=== PATIENT | female | born 1995 | race Hispanic/Latino ===

== ENCOUNTER 2018-09-18 18:43 | Emergency (ER) | payer OTHER, SELFPAY ==
[2018-09-18] MEDS ORDERED: TETANUS & DIPHTHERIA TOX,ADULT 0.5 ML VIAL ONE (20:44)
--- NOTE | 2018-09-18 22:06 | EDPHYS ---
Physician Documentation [facility] Name: Anamika Norton Age: 22 yrs Sex: Female : 1995 Arrival Date: 09/18/2018 Time: 18:46 Bed Treatment Private MD: ED Physician Adam Navarro HPI: 09/18 22:00 This 22 yrs old Female presents to ER via Ambulatory with complaints of pm1 Numbness Of Hand. 22:00 The patient or guardian reports pain. The complaints affect the dorsal aspect of distal pm1 phalanx of right thumb. Context: The problem was sustained at home, resulted from nail biting. Onset: The symptoms/episode began/occurred 3 day(s) ago. Modifying factors: The symptoms are alleviated by nothing, the symptoms are aggravated by nothing. Associated signs and symptoms: Pertinent negatives: cyanosis distally, decreased sensation distally, fever, numbness distally, tingling distally. Severity of symptoms: in the emergency department the symptoms are actually worse. The patient has not experienced similar symptoms in the past. The patient has not recently seen a physician. 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 - Social history:: Smoking status: Patient/guardian denies using tobacco. - Ebola Screening: : No symptoms or risks identified at this time. ROS: 22:00 Constitutional: Negative for fever, chills, and weight loss, Eyes: Negative for injury, pm1 pain, redness, and discharge, ENT: Negative for injury, pain, and discharge, Neck: Negative for injury, pain, and swelling, Cardiovascular: Negative for chest pain, palpitations, and edema, Respiratory: Negative for shortness of breath, cough, wheezing, and pleuritic chest pain, Abdomen/GI: Negative for abdominal pain, nausea, vomiting, diarrhea, and constipation, Back: Negative for injury and pain. 22:00 Skin: Negative for injury, rash, and discoloration, Neuro: Negative for headache, weakness, numbness, tingling, and seizure. 22:00 MS/extremity: Positive for pain, swelling, of the dorsal aspect of distal phalanx of right thumb, Negative for decreased range of motion, deformity. Exam: 22:00 Constitutional: This is a well developed, well nourished patient who is awake, alert, pm1 and in no acute distress. Head/Face: Normocephalic, atraumatic. Neck: Trachea midline, no thyromegaly or masses palpated, and no cervical lymphadenopathy. Supple, full range of motion without nuchal rigidity, or vertebral point tenderness. No Meningismus. Chest/axilla: Normal chest wall appearance and motion. Nontender with no deformity. No lesions are appreciated. Cardiovascular: Regular rate and rhythm with a normal S1 and S2. No gallops, murmurs, or rubs. Normal PMI, no JVD. No pulse deficits. Respiratory: Lungs have equal breath sounds bilaterally, clear to auscultation and percussion. No rales, rhonchi or wheezes noted. No increased work of breathing, no retractions or nasal flaring. Abdomen/GI: Soft, non-tender, with normal bowel sounds. No distension or tympany. No guarding or rebound. No evidence of tenderness throughout. Back: No spinal tenderness. No costovertebral tenderness. Full range of motion. Skin: Warm, dry with normal turgor. Normal color with no rashes, no lesions, and no evidence of cellulitis. 22:00 Musculoskeletal/extremity: Extremities: grossly normal except: noted in the dorsal aspect of distal phalanx of right thumb: fluctuance and swelling present to medial lateral aspect of right thumb cuticle. Vital Signs: 19:06 BP 104 / 58; Pulse 91; Resp 18; Temp 98(TE); Pulse Ox 100% ; Weight 143.34 kg; Height 5 ea ft. 2 in. (157.48 cm); Pain 10/10; 19:06 Body Mass Index 57.80 (143.34 kg, 157.48 cm) ea MDM: 20:02 Patient medically screened. pm1 22:03 Data reviewed: vital signs. Data interpreted: Pulse oximetry: on room air is 100 %. pm1 Interpretation: normal. Counseling: I had a detailed discussion with the patient and/or guardian regarding: the historical points, exam findings, and any diagnostic results supporting the discharge/admit diagnosis, the need for outpatient follow up, to return to the emergency department if symptoms worsen or persist or if there are any questions or concerns that arise at home. 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 Exp: iw 09/11/2020. Lot #: [id number]. } Route: IM; Site: left deltoid; 22:00 Follow up: Response: No adverse reaction; No change in condition 21:55 Drug: [place] (7.5 mg-325 mg) 1 tabs Route: PO; fc 22:00 Follow up: Response: No adverse reaction; Pain is decreased fc Disposition: 09/19 20:11 Co-signature as Attending Physician, Adam Navarro MD. Disposition: 09/18/18 22:06 Discharged to Home. Impression: Paronychia right thumb. - Condition is Stable. - Discharge Instructions: Paronychia. - Prescriptions for Augmentin 875- 125 mg Oral Tablet - take 1 tablet by ORAL route every 12 hours for 10 days; 20 tablet. Tylenol- Codeine #3 300-30 mg Oral Tablet - take 2 tablets by ORAL route every 6 hours As needed; 20 tablet. - Medication Reconciliation Form, Thank You Letter, Antibiotic Education, Prescription Opioid Use form. - Follow up: Emergency Department; When: As needed; Reason: Worsening of condition. Follow up: Julian Hdz MD; When: 2 - 3 days; Reason: Recheck today's complaints, Continuance of care, Re-evaluation by your physician. - Problem is new. - Symptoms have improved. Signatures: Cris Blackman RN RN Radha Hernández RN RN Wilbert Villavicencio, MANAGER FREELANCE MANAGER FREELANCE pm1 Carole Terrazas RN RN ea Starr, Gregory, MD MD Corrections: (The following items were deleted from the chart) 09/18 22:20 22:06 09/18/2018 22:06 Discharged to Home. Impression: Paronychia right thumb. Condition is Stable. Forms are Medication Reconciliation Form, Thank You Letter, Antibiotic Education, Prescription Opioid Use. Follow up: Emergency Department; When: As needed; Reason: Worsening of condition. Follow up: Julian Hdz; When: 2 - 3 days; Reason: Recheck today's complaints, Continuance of care, Re-evaluation by your physician. Problem is new. Symptoms have improved. pm1
--- NOTE | 2018-09-18 22:06 | ER ---
Nurse's Notes [facility] Name: Anamika Norton Age: 22 yrs Sex: Female : 1995 Arrival Date: 09/18/2018 Time: 18:46 Bed Treatment Private MD: Diagnosis: Paronychia right thumb Presentation: 09/18 19:04 Presenting complaint: Patient states: Pt complaining of pain and numbness to right ea thumb with pain that radiates to right arm. Transition of care: patient was not received from another setting of care. Onset of symptoms. Risk Assessment: Do you want to hurt yourself or someone else? Patient reports no desire to harm self or others. Initial Sepsis Screen: Does the patient meet any 2 criteria? No. Patient's initial sepsis screen is negative. Does the patient have a suspected source of infection? No. Patient's initial sepsis screen is negative. Care prior to arrival: None. 19:04 Method Of Arrival: Ambulatory ea 19:04 Acuity: FLOR 5 ea Triage Assessment: 19:08 General: Appears uncomfortable, Behavior is calm, cooperative, appropriate for age. ea Pain: Complains of pain in right thumbnail. Neuro: Level of Consciousness is awake, alert, obeys commands, Oriented to person, place, time. Cardiovascular: Patient's skin is warm and dry. Respiratory: Airway is patent Respiratory effort is even, unlabored, Respiratory pattern is regular, symmetrical. Musculoskeletal: Circulation, motion, and sensation intact. 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 - Social history:: Smoking status: Patient/guardian denies using tobacco. - Ebola Screening: : No symptoms or risks identified at this time. Screenin:06 Abuse screen: Denies threats or abuse. Denies injuries from another. Nutritional iw screening: No deficits noted. Tuberculosis screening: No symptoms or risk factors identified. Fall Risk None identified. Assessment: 20:05 General: Appears in no apparent distress. Behavior is calm, cooperative. Neuro: Level iw of Consciousness is awake, alert, obeys commands, Oriented to person, place, time, Moves all extremities. Cardiovascular: Patient's skin is warm and dry. Respiratory: Respiratory effort is even, unlabored, Respiratory pattern is regular, symmetrical. Derm: Skin is intact, is healthy with good turgor. Musculoskeletal: Range of motion: intact in all extremities, Reports numbness in right hand. 20:05 Pain: Complains of pain in right thumbnail. Derm: swelling noted to right thumb. iw 21:15 Reassessment: No changes from previously documented assessment. Patient and/or family fc updated on plan of care and expected duration. Pain level reassessed. Patient is alert, oriented x 3, equal unlabored respirations, skin warm/dry/pink. Wilbert RED CROSS EXECUTIVE DIRECTOR in to drain pts thumb. 21:45 Reassessment: No changes from previously documented assessment. Patient and/or family fc updated on plan of care and expected duration. Pain level reassessed. Patient is alert, oriented x 3, equal unlabored respirations, skin warm/dry/pink. Pt pending discharge. Vital Signs: 19:06 BP 104 / 58; Pulse 91; Resp 18; Temp 98(TE); Pulse Ox 100% ; Weight 143.34 kg; Height 5 ea ft. 2 in. (157.48 cm); Pain 10/10; 19:06 Body Mass Index 57.80 (143.34 kg, 157.48 cm) ea ED Course: 18:46 Patient arrived in ED. rg4 19:06 Triage completed. ea 19:08 Arm band placed on left wrist. Patient placed in waiting room. ea 19:29 Radha Hernández, JOVANI is Primary Nurse. iw 20:01 Wilbert Villavicencio NP is PHCP. pm1 20:01 Adam Navarro MD is Attending Physician. pm1 21:00 Patient has correct armband on for positive identification. Call light in reach. fc 21:30 Wound care: to cellulitis located on dorsal aspect of distal phalanx of right thumb was fc debrided using dressed with Neosporin, 4X4s, Patient tolerated well. 22:05 Julian Hdz MD is Referral Physician. pm1 09/19 00:45 No provider procedures requiring assistance completed. Patient did not have IV access fc during this emergency room visit. 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 Exp: iw 09/11/2020. Lot #: [id number]. } Route: IM; Site: left deltoid; 22:00 Follow up: Response: No adverse reaction; No change in condition 21:55 Drug: [place] (7.5 mg-325 mg) 1 tabs Route: PO; 22:00 Follow up: Response: No adverse reaction; Pain is decreased fc Outcome: 22:00 Discharged to home ambulatory, with family. 22:00 Condition: good 22:00 Discharge instructions given to patient, family, Instructed on discharge instructions, follow up and referral plans. no drinking with medication, no driving heavy equipment, medication usage, wound care, Demonstrated understanding of instructions, follow-up care, medications, wound care, Prescriptions given X 2. 22:06 Discharge ordered by . pm1 22:20 Patient left the ED. Signatures: Cris Blackman RN RN Radha Hernández RN RN Wilbert Villavicencio, DOROTEO RED CROSS EXECUTIVE DIRECTOR pm1 Brisa Cortez rg4 Carole Terrazas RN RN ea
[2018-09-18 22:25] VITALS: BP 104/58; TEMP 98; O2SAT 100
== END 2018-09-18 22:20 | disposition home or self-care (01) ==
LOC: ER 18:43
DX: L03.011 Cellulitis of right finger (principal); E11.9 Type 2 diabetes mellitus without complications; Z23 Encounter for immunization; Z88.0 Allergy status to penicillin
CPT/HCPCS: 90714; 99283

== ENCOUNTER 2022-08-30 06:55 | Emergency (ER) | payer SELFPAY ==
--- OUTSIDE RECORDS SUMMARY | 2022-08-30 06:58 | XMS REPORT | Continuity of Care Document ---
:1995 Author Organization [facility] t Address [address] [place] [address] Care Team Providers Name Role Phone PCP, PATIENT DOES NOT HAVE A Primary Care Physician Unavaila Juanpablo Causey DO Attending Clinician JUANPABLO BANEGAS Attending Clinician Unavailable JUANPABLO BANEGAS Admitting Clinician Unavailable Payers Payer Name Policy Type Policy Number Effective Date Expiration Date S edie HAYNESR FROM [id number] 2021 [facility] 00:00:00 Problems Condition Condition Condition Status Onset Resolution Last Treating Co mments Source Name Details Category Date Date Treatment Clinician Date No known No known Disease Unive rs active active ity of problems problems [facility] Allergies, Adverse Reactions, Alerts Allergy Allergy Status Severity Reaction(s) Onset Inactive Treating Comm ents Source Name Type Date Date Clinician Penicill Propensi Active Unknown - 2020-07 Uni vers ins ty to See comments 0-07 ity of adverse 00:00: [place] reaction 00 Medical s Branch PENICILL Drug Active Unknown-Cmnt 2020-07 Un charbel INS Class 0-07 ity of 00:00: [place] 00 Medical Branch Social History Social Habit Start Date Stop Date Quantity Comments Source Exposure to Not sure [facility] SARS-CoV-2 (event) Medica l Branch Sex Assigned At [birth year] [facility] 00:00:00 00:00:00 Medical Branch Smoking Status Start Date Stop Date Source Unknown if ever smoked [facility] Medications Ordered Filled Start Stop Current Ordering Indication Dosage Frequency Signature Comments Components Source Medication Medication Date Date Medication? Clinician (SIG) Name Name metFORMIN 2020-07 Yes [id number] 500mg Take 1 [facility] 500 mg 0-07 tablet by ity of tablet 00:00: mouth 2 [place] 00 (two) Medical times Branch daily. naproxen 2020-07 Yes [id number] 550mg Take 1 U nivers sodium 0-07 tablet by ity of (ANAPROX 00:00: mouth 2 [place] DS) 550 mg 00 (two) Medical tablet times Branch daily with meals. methocarbam 2020-07 No [id number] 500mg Take 1 Univers oL 500 mg 0-07 - tablet by ity of tablet 00:00: 04:59 mouth 3 [place] 00 :00 (three) Medical times Branch daily for 5 days. Vital Signs Vital Name Observation Time Observation Value Comments Source Systolic blood 2021-05-04 12:54:00 134 [facility]Hg[facility] 2021-05-04 12:54:00 84 mm[facility]Hg[facility] 2021-05-04 12:54:00 79 /min [facility] Body temperature 2021-05-04 12:54:00 36.78 [facility] Respiratory rate 2021-05-04 12:54:00 18 /min [facility] Body weight 2021-05-04 12:54:00 134.265 kg [facility] Oxygen saturation in 2021-05-04 12:54:00 99 /min [facility] Arterial blood by [facility] Pulse oximetry Branch Procedures Procedure Date / Time Performed Performing Clinician John e XR HIPS 3 VW LEFT 2021-05-04 13:26:57 Juanpablo Banegas [facility] Encounters Start End Encounter Admission Attending Care Care Encounter Source Date/Time Date/Time Type Type Clinicians Facility Department ID 2021-05-04 2021-05-04 Emergency BLACK Banegas [id number] [facility] 07:58:00 08:51:00 Juanpablo Muse [id number] i ty [facility] [id number] [facility] [id number] [facility] 084 Branch 2021-05-04 2021-05-04 Emergency X [facility] ERT [id number] 07:58:00 08:51:00 JUANPABLO garces [facility] Results This patient has no known results.
--- NOTE | 2022-08-30 08:04 | RAD REPORT ---
EXAM DESCRIPTION: RAD - Chest Pa And Lat (2 Views) - 08/30/2022 7:40 am CLINICAL HISTORY: COUGH COMPARISON: Portable 05/07/2022, lateral chest 03/12/2017 TECHNIQUE: Frontal and lateral views of the chest were obtained. FINDINGS: The lungs are clear. Interstitial pattern matches comparison. No hilar mass or abnormal l ymphadenopathy seen. Heart size is normal and central vasculature is within normal limits. No pleural effusion or pneumo thorax seen. No acute bony finding noted. No aortic abnormality. IMPRESSION: No acute cardiopulmonary process. No significant change from comparison study.
[2022-08-30 08:14] LABS: SARS-COV-2 RT PCR NEGATIVE (NEGATIVE)
[2022-08-30] MEDS ORDERED: ACETAMINOPHEN 500 MG TAB ONE (08:22)
--- NOTE | 2022-08-30 08:25 | EDPHYS ---
Physician Documentation [facility] Name: Anamika Norton Age: 26 yrs Sex: Female : 1995 Arrival Date: 08/30/2022 Time: 06:58 Bed 5 Private MD: ED Physician Faisal Renee HPI: 08/30 08:25 This 26 yrs old Female presents to ER via Ambulatory with complaints of Sinus ms3 Pain, Breathing Difficulty. 08:25 26-year-old female with past medical history of diabetes presents for sinus, chest ms3 pain, headache that she rates a 5/10 and described as aching. Patient denies nausea, vomiting, chills, fever. Patient states her symptoms began on Saturday. Patient denies alleviating or inciting factors.. 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 - Social history:: Smoking status: Patient reports the use of cigarette tobacco products, denies chronic smoking, but will smoke occasionally, Patient uses alcohol, occasionally. ROS: 08:27 Cardiovascular: Negative for chest pain, and palpitations. Respiratory: Negative for ms3 shortness of breath, cough, wheezing, and pleuritic chest pain, Abdomen/GI: Negative for abdominal pain, nausea, vomiting, diarrhea, and constipation, MS/Extremity: Negative for injury and deformity, Skin: Negative for injury, rash, and discoloration. 08:27 Constitutional: Positive for body aches, Negative for chills, fever. 08:27 All other systems are negative. Exam: 08:27 Constitutional: This is a well developed, well nourished patient who is awake, alert, ms3 and in no acute distress. Neck: Trachea midline, no cervical lymphadenopathy. Supple, full range of motion without nuchal rigidity, or vertebral point tenderness. No Meningismus. Chest/axilla: Normal chest wall appearance and motion. Nontender with no deformity. Cardiovascular: Regular rate and rhythm with a normal S1 and S2. No gallops, murmurs, or rubs. Normal PMI, no JVD. No pulse deficits. Respiratory: Lungs have equal breath sounds bilaterally, clear to auscultation and percussion. No rales, rhonchi or wheezes noted. No increased work of breathing, no retractions or nasal flaring. Abdomen/GI: Soft, non-tender, with normal bowel sounds. No distension or tympany. No guarding or rebound. No evidence of tenderness throughout. Skin: Warm, dry with normal turgor. Normal color with no rashes, no lesions, and no evidence of cellulitis. MS/ Extremity: Pulses equal, no cyanosis. Neurovascular intact. Full, normal range of motion. Vital Signs: 07:14 BP 125 / 85; Pulse 80; Resp 17; Temp 98.1(O); Pulse Ox 98% on R/A; Weight 117.03 kg; ap3 Height 5 ft. 2 in. (157.48 cm); 07:14 Body Mass Index 47.19 (117.03 kg, 157.48 cm) ap3 MDM: 07:20 Patient medically screened. ms3 08:27 Differential Diagnosis: Bronchitis Influenza Upper Respiratory Infection Viral Syndrome ms3 Pneumonia. Data reviewed: vital signs, nurses notes, lab test result(s), Flu/COVID, radiologic studies, plain films, and as a result, I will discharge patient. I considered the following discharge prescriptions or medication management in the emergency department I discussed and recommended Over The Counter medications, Medications were administered in the Emergency Department. See MAR. Independent interpretation of the following test(s) in the Emergency Department X-Ray: My interpretation is My interpretation of chest x-ray image: Negative acute. Counseling: I had a detailed discussion with the patient and/or guardian regarding: the historical points, exam findings, and any diagnostic results supporting the discharge/admit diagnosis, lab results, radiology results, the need for outpatient follow up, to return to the emergency department if symptoms worsen or persist or if there are any questions or concerns that arise at home. ED course: Discussed negative flu, COVID, chest x-ray with patient. Patient to follow-up with Dr. Vanegas in 2 to 3 days. Patient understands and agrees with plan. All questions were answered. Return precautions discussed include shortness of breath, chest pain, worsening symptoms, or any other concerns. On reevaluation patient is alert and oriented x4, in no apparent distress, nontoxic, ambulatory in emergency department, speaking full sentences.. 08/30 07:23 Order name: COVID-19/FLU A+B; Complete Time: 08:16 ms3 08/30 07:23 Order name: Chest Pa And Lat (2 Views) XRAY; Complete Time: 08:16 ms3 Administered Medications: 08:20 Drug: Tylenol 1000 mg Route: PO; ph 08:20 Follow up: Response: No adverse reaction ph Disposition Summary: 08/30/22 08:24 Discharge Ordered Location: Home ms3 Condition: Stable ms3 Diagnosis - Acute upper respiratory infection, unspecified ms3 - Nasal congestion ms3 - Myalgia ms3 Followup: ms3 - With: Bob Vanegas DO - When: 2 - 3 days - Reason: Recheck today's complaints Discharge Instructions: - Discharge Summary Sheet ph - Viral Respiratory Infection ms3 Forms: - Work release form ph - Medication Reconciliation Form ms3 - Thank You Letter ms3 - Antibiotic Education ms3 - Prescription Opioid Use ms3 Prescriptions: - Nasacort 55 mcg Nasal aerosol,spray - spray 2 spray by INTRANASAL route once daily; 1 bottle; Refills: 0, Product ms3 Selection Permitted - Claritin 10 mg Oral Tablet - take 1 tablet by ORAL route once daily As needed; 30 tablet; Refills: 0, ms3 Product Selection Permitted Signatures: Dispatcher [employer] Ashlee Mayen RN RN Lesli Galaviz RN RN ap3 Faisal Renee DO DO ms3 Corrections: (The following items were deleted from the chart) 08:28 08:25 26-year-old female with past medical history of diabetes presents for sinus, ms3 chest pain, headache that she rates a 5/10 and described as aching. Patient denies nausea, vomiting, chills, fever. Patient states her symptoms began. ms3
--- NOTE | 2022-08-30 08:25 | ER ---
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 Patient reports her cough is productive. Coronavirus screen: Client presents with at least one sign or symptom that may indicate coronavirus-19. Ebola Screen: No symptoms or risks identified at this time. Initial Sepsis Screen: Does the patient meet any 2 criteria? No. Patient's initial sepsis screen is negative. Does the patient have a suspected source of infection? Yes: Productive cough/pneumonia. Risk Assessment: Do you want to hurt yourself or someone else? Patient reports no desire to harm self or others. Onset of symptoms was August 27, 2022. 07:14 Method Of Arrival: Ambulatory ap3 07:14 Acuity: FLOR 4 ap3 Triage Assessment: 07:17 Headache History: The patient has had previous headaches and this one is similar to ap3 previous episodes. General: Appears in no apparent distress. Behavior is calm, cooperative. Pain: Complains of pain in head, and face Pain currently is 5 out of 10 on a pain scale. Pain began gradually, 2-3 days ago. Also complains of cough, congestion, sneezing. EENT: Reports nasal congestion nasal discharge. Neuro: Level of Consciousness is awake, alert, obeys commands, Oriented to person, place, time, situation, Gait is steady, Speech is normal, Facial symmetry appears normal. Cardiovascular: Patient's skin is warm and dry. Respiratory: Reports cough that is productive, Airway is patent Respiratory pattern is regular, symmetrical. 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 - Social history:: Smoking status: Patient reports the use of cigarette tobacco products, denies chronic smoking, but will smoke occasionally, Patient uses alcohol, occasionally. Screenin:18 [facility] ED Fall Risk Assessment (Adult) History of falling in the last 3 months, ap3 including since admission No falls in past 3 months (0 pts). Abuse screen: Denies threats or abuse. Nutritional screening: No deficits noted. Tuberculosis screening: No symptoms or risk factors identified. Vital Signs: 07:14 BP 125 / 85; Pulse 80; Resp 17; Temp 98.1(O); Pulse Ox 98% on R/A; Weight 117.03 kg; ap3 Height 5 ft. 2 in. (157.48 cm); 07:14 Body Mass Index 47.19 (117.03 kg, 157.48 cm) ap3 ED Course: 06:58 Patient arrived in ED. rg4 07:04 Faisal Renee DO is Attending Physician. ms3 07:05 Lesli Hankins RN is Primary Nurse. ap3 07:16 Triage completed. ap3 07:18 Arm band placed on left wrist. ap3 07:18 Patient has correct armband on for positive identification. Bed in low position. Call ap3 light in reach. Side rails up X 1. Pulse ox on. NIBP on. Door closed. Noise minimized. 07:35 COVID-19/FLU A+B Sent. kc6 07:42 Chest Pa And Lat (2 Views) XRAY In Process Unspecified. EDMS 08:23 Bob Vanegas DO is Referral Physician. ms3 08:32 No provider procedures requiring assistance completed. Patient did not have IV access ap3 during this emergency room visit. Administered Medications: 08:20 Drug: Tylenol 1000 mg Route: PO; ph 08:20 Follow up: Response: No adverse reaction ph Medication: 07:19 VIS not applicable for this client. ap3 Outcome: 08:24 Discharge ordered by MD. ms3 08:32 Discharged to home ambulatory. ap3 08:32 Condition: good 08:32 Discharge instructions given to patient, Instructed on discharge instructions, follow up and referral plans. medication usage, Demonstrated understanding of instructions, follow-up care, medications, Prescriptions given X 2. 08:32 Patient left the ED. ap3 Signatures: Dispatcher [employer] EDNE Ashlee Jean Baptiste RN RN ph Brisa Cortez rg4 Lesli Hankins, RN RN ap3 Faisal Renee, DO LADD ms3 Rajni Chilel, RN RN kc6
[2022-08-30 08:45] VITALS: BP 125/85; TEMP 98.1; O2SAT 98
== END 2022-08-30 08:32 | disposition home or self-care (01) ==
LOC: ER 06:55
DX: J06.9 Acute upper respiratory infection, unspecified (principal); M79.10 Myalgia, unspecified site; E11.9 Type 2 diabetes mellitus without complications; F17.210 Nicotine dependence, cigarettes, uncomplicated; Z20.822 Contact with and (suspected) exposure to COVID-19
CPT/HCPCS: 0240U; 71046; 99284

== ENCOUNTER 2022-12-11 19:12 | Emergency (ER) | payer SELFPAY ==
--- OUTSIDE RECORDS SUMMARY | 2022-12-11 19:15 | XMS REPORT | Continuity of Care Document ---
:1995 Author Organization [facility] t Address [address] [facility] [address] [place] [id number] Care Team Providers Name Role Phone PCP, PATIENT DOES NOT HAVE A Primary Care Physician Unavaila Juanpablo Causey DO Attending Clinician JUANPABLO BANEGAS Attending Clinician Unavailable JUANPABLO BANEGAS Admitting Clinician Unavailable Payers Payer Name Policy Type Policy Number Effective Date Expiration Date S edie HAYNESR FROM [id number] 2021 [facility] 00:00:00 Problems Condition Condition Condition Status Onset Resolution Last Treating Co mments Source Name Details Category Date Date Treatment Clinician Date No known No known Disease Unive rs active active ity of problems problems [facility] Allergies, Adverse Reactions, Alerts Allergy Allergy Status [...] Quantity Comments Source Exposure to Not sure [facility] SARS-CoV-2 (event) Medica l Branch Sex Assigned At [birth year] [facility] 00:00:00 00:00:00 Medical Branch Smoking Status Start Date Stop Date Source Unknown if ever smoked [facility] Medications Ordered Filled Start Stop Current Ordering Indication Dosage Frequency Signature Comments Components Source Medication Medication Date Date Medication? Clinician (SIG) Name Name metFORMIN 2020-07 Yes [id number] 500mg Take 1 [facility] 500 mg 0-07 tablet by ity of tablet 00:00: mouth 2 [place] 00 (two) Medical times Branch daily. naproxen 2020-07 Yes [id number] 550mg Take 1 U nivers sodium 0-07 tablet by ity of (ANAPROX 00:00: mouth 2 [place] DS) 550 mg 00 (two) Medical tablet times Branch daily with meals. methocarbam 2020-07 No [id number] 500mg Take 1 [facility] oL 500 mg 0-07 - tablet by ity of tablet 00:00: 04:59 mouth 3 [place] 00 :00 (three) Medical times Branch daily for 5 days. Vital Signs Vital Name Observation Time Observation Value Comments Source Systolic blood 2021-05-04 12:54:00 134 mm[Hg] [facility] 2021-05-04 12:54:00 84 mm[facility]Hg[facility] 2021-05-04 12:54:00 79 /min [facility] Body temperature 2021-05-04 12:54:00 36.78 Priscilla [facility] Respiratory rate 2021-05-04 12:54:00 18 /min [facility] Body weight 2021-05-04 12:54:00 134.265 kg [facility] Oxygen saturation in 2021-05-04 12:54:00 99 /min [facility] Arterial blood by [facility] Pulse oximetry Branch Procedures Procedure Date / Time Performed Performing Clinician John e XR HIPS 3 VW LEFT 2021-05-04 13:26:57 Juanpablo Banegas [facility] Encounters Start End Encounter Admission Attending Care Care Encounter Source Date/Time Date/Time Type Type Clinicians Facility Department ID 2021-05-04 2021-05-04 Emergency BLACK Banegas [id number] [facility] 07:58:00 08:51:00 Juanpablo Muse [id number] i ty [facility] [id number] [facility] [id number] [facility] 084 Branch 2021-05-04 2021-05-04 Emergency X [facility] ERT [id number] 07:58:00 08:51:00 JUANPABLO garces [facility] Results This patient has no known results.
--- NOTE | 2022-12-11 20:23 | RAD REPORT ---
EXAM DESCRIPTION: US - Extremity Nonvascular Limited - 12/11/2022 8:10 pm CLINICAL HISTORY: SWELLING COMPARISON: No comparisons TECHNIQUE: Real-time sonographic evaluation of the area of interest was performed posterior right ne ck. FINDINGS: Subcutaneous cystic lesion is present measuring 2.6 x 1.9 x 1.0 cm. Maximum depth of 1 cm noted. This appears in close approximation to the skin and may be dermatologic in etiology. Consider surgical excision.
[2022-12-11] MEDS ORDERED: IBUPROFEN 400 MG TAB ONE (20:30)
--- NOTE | 2022-12-11 20:38 | ER ---
Nurse's Notes [facility] Name: Anamika Norton Age: 27 yrs Sex: Female : 1995 Arrival Date: 12/11/2022 Time: 19:12 Bed 9 Private MD: Diagnosis: Localized swelling, mass and lump, neck Presentation: 12/11 19:30 Chief complaint: Patient states: Lumb of the back of the neck, noted first about 2 nj1 years ago, was "tiny" however, about two weeks ago had grown in size, squeezed some pus but wasn't hurting as bad until this weekend and has grown in size. Coronavirus screen: Vaccine status: Patient reports receiving the 2nd dose of the covid vaccine. Ebola Screen: Patient denies travel to an Ebola-affected area in the 21 days before illness onset. Initial Sepsis Screen: Does the patient meet any 2 criteria? No. Patient's initial sepsis screen is negative. Does the patient have a suspected source of infection? No. Patient's initial sepsis screen is negative. Risk Assessment: Do you want to hurt yourself or someone else? Patient reports no desire to harm self or others. Onset of symptoms was November 27, 2022. 19:30 Method Of Arrival: Ambulatory [facility] 19:30 Acuity: FLOR 3 nj1 Triage Assessment: 20:25 General: Appears in no apparent distress. comfortable, well groomed, well developed, pf1 Behavior is calm, cooperative, appropriate for age, quiet. Pain: Complains of pain in right lower neck Pain currently is 4 out of 10 on a pain scale. Pain began 2 weeks. 20:25 EENT: No deficits noted. No signs and/or symptoms were reported regarding the EENT pf1 system. Neuro: No deficits noted. Level of Consciousness is awake, alert, obeys commands, Oriented to person, place, time, situation. Cardiovascular: No deficits noted. Capillary refill < 3 seconds Patient's skin is warm and dry. Respiratory: No deficits noted. Airway is patent Trachea midline Respiratory effort is even, unlabored, Respiratory pattern is regular, symmetrical. GI: No deficits noted. No signs and/or symptoms were reported involving the gastrointestinal system. : No deficits noted. No signs and/or symptoms were reported regarding the genitourinary system. Derm: mild red bump to right lower posterior neck. Musculoskeletal: No deficits noted. No signs and/or symptoms reported regarding the musculoskeletal system. Historical: - Allergies: 19:36 PENICILLINS; nj1 - PMHx: 19:36 Diabetes - NIDDM; nj1 - PSHx: 19:36 section; nj1 - Immunization history:: Client reports receiving the 2nd dose of the Covid vaccine. - Social history:: Smoking status: Patient reports the use of cigarette tobacco products, denies chronic smoking, but will smoke occasionally. Screenin:25 [facility] ED Fall Risk Assessment (Adult) History of falling in the last 3 months, pf1 including since admission No falls in past 3 months (0 pts) Confusion or Disorientation No (0 pts) Intoxicated or Sedated No (0 pts) Impaired Gait No (0 pts) Mobility Assist Device Used No (0 pt) Altered Elimination No (0 pt) Score/Fall Risk Level 0 - 2 = Low Risk Oriented to surroundings, Maintained a safe environment, Educated pt \\T\\ family on fall prevention, incl call for assistance when getting out of bed, Assessed \\T\\ reinforced patient's understanding of fall precautions, Provided non-skid footwear, Hourly rounding (assess needs \\T\\ fall precautionary measures) done, Used ambulatory aids as needed (educated on \\T\\ assisted with), Used gait belt as appropriate. 20:25 Abuse screen: Denies threats or abuse. Nutritional screening: No deficits noted. pf1 Tuberculosis screening: No symptoms or risk factors identified. Assessment: 20:25 General: Appears in no apparent distress. comfortable, obese, well groomed, well pf1 developed, Behavior is calm, cooperative, appropriate for age, quiet. 20:25 Pain: Complains of pain in bump to right upper back proximal to neck region,onset 2 pf1 years ago, worse in the past 2 weeks after trying to drain some pus from the bump and now having some mild redness to bump. Vital Signs: 19:30 BP 132 / 108; Pulse 89; Resp 16; Temp 98.8; Pulse Ox 100% ; Weight 128.82 kg; Height 5 nj1 ft. 2 in. ; Pain 6/10; 20:48 BP 116 / 67; Pulse 85; Resp 16; Temp 98.2; Pulse Ox 99% on R/A; Pain 3/10; pf1 19:30 Body Mass Index 51.94 (128.82 kg, 157.48 cm) nj1 19:30 Pain Scale: Adult nj1 20:48 Pain Scale: Adult pf1 ED Course: 19:13 Patient arrived in ED. ja2 19:14 Parrish Vaca PA is PHCP. cp 19:14 Faisal Renee DO is Attending Physician. cp 19:36 Triage completed. nj1 19:38 Arm band placed on right wrist. nj1 20:12 US Extrmty Nonvasular Limited: right side of neck In Process Unspecified. EDMS 20:25 Patient has correct armband on for positive identification. Bed in low position. Call pf1 light in reach. 20:36 Keven Lora MD is Referral Physician. cp 20:40 No provider procedures requiring assistance completed. pf1 20:40 Patient did not have IV access during this emergency room visit. pf1 Administered Medications: 20:32 Drug: Ibuprofen PO 800 mg Route: PO; mb9 20:48 Follow up: Response: No adverse reaction; Marked relief of symptoms pf1 Medication: 20:48 VIS not applicable for this client. pf1 Outcome: 20:37 Discharge ordered by MD. cp 20:48 Discharged to home ambulatory. pf1 20:48 Condition: good 20:48 Discharge instructions given to patient, Instructed on discharge instructions, follow up and referral plans. Demonstrated understanding of instructions, follow-up care, medications, Prescriptions given X 2. 20:48 Patient left the ED. pf1 Signatures: Dispatcher [employer] EDSC Parrish Vaca PA PA cp Lynette Murray ja2 Lakshmi Mascorro RN RN mb9 Kaylie Mary RN RN pf1 Perla Portillo RN RN nj1 Corrections: (The following items were deleted from the chart) 19:38 19:36 Allergies: No Known Allergies; nj1 nj1 12/12 02:37 16 08:25 General: Appears in no apparent distress. comfortable, obese, well groomed, pf1 well developed, Behavior is calm, cooperative, appropriate for age, quiet, pf1 12/12 02:37 16 08:25 Pain: Complains of pain in bump to right upper back proximal to neck pf1 region,onset 2 years ago, worse in the past 2 weeks after trying to drain some pus from the bump and now having some mild redness to bump. pf1
--- NOTE | 2022-12-11 20:38 | EDPHYS ---
Physician Documentation [facility] Name: Anamika Norton Age: 27 yrs Sex: Female : 1995 Arrival Date: 12/11/2022 Time: 19:12 Bed 9 Private MD: ED Physician Faisal Renee HPI: 12/11 19:45 This 27 yrs old Female presents to ER via Ambulatory with complaints of Lump cp on Neck. 19:45 The patient or guardian complains of swelling, tenderness. cp 19:45 The symptoms are located on the right lateral side of neck. Onset: The symptoms/episode cp began/occurred 2 year(s) ago. Context: The neck injury/problem resulted from from unknown cause. Associated signs and symptoms: Pertinent negatives: chills, fever, nausea, vomiting. The pain does not radiate. 19:45 Patient reports increased swelling and pain to area of right side of neck for past 2 cp weeks. Reports expressing "pus" from area. Historical: - Allergies: 19:36 PENICILLINS; nj1 - PMHx: 19:36 Diabetes - NIDDM; nj1 - PSHx: 19:36 section; nj1 - Immunization history:: Client reports receiving the 2nd dose of the Covid vaccine. - Social history:: Smoking status: Patient reports the use of cigarette tobacco products, denies chronic smoking, but will smoke occasionally. ROS: 19:50 Constitutional: Negative for body aches, chills, fever, poor PO intake. cp 19:50 ENT: Negative for drainage from ear(s), ear pain, sore throat, difficulty swallowing, cp difficulty handling secretions. 19:50 Neck: Positive for pain at rest, swelling, tenderness, of the right side of neck, Negative for injury or acute deformity. 19:50 Respiratory: Negative for cough, shortness of breath, wheezing. 19:50 Abdomen/GI: Negative for abdominal pain, nausea, vomiting, and diarrhea. 19:50 Neuro: Negative for altered mental status, dizziness, headache, weakness. 19:50 All other systems are negative. Exam: 19:55 Constitutional: The patient appears in no acute distress, alert, awake, non-toxic, well cp developed, well nourished, obese. 19:55 Head/Face: Normocephalic, atraumatic. cp 19:55 Neck: External neck: well defined area of swelling and tenderness cystic mass palpated, fluctuant, mild erythema noted. no drainage expressed, ROM/movement: is normal, is supple, without pain, no range of motions limitations. 19:55 Chest/axilla: Inspection: normal. 19:55 Cardiovascular: Rate: normal. 19:55 Respiratory: the patient does not display signs of respiratory distress, Respirations: normal, no use of accessory muscles, no retractions, labored breathing, is not present, Breath sounds: are clear throughout, no decreased breath sounds. 19:55 Abdomen/GI: Inspection: abdomen appears normal. Vital Signs: 19:30 BP 132 / 108; Pulse 89; Resp 16; Temp 98.8; Pulse Ox 100% ; Weight 128.82 kg; Height 5 nj1 ft. 2 in. ; Pain 6/10; 20:48 BP 116 / 67; Pulse 85; Resp 16; Temp 98.2; Pulse Ox 99% on R/A; Pain 3/10; pf1 19:30 Body Mass Index 51.94 (128.82 kg, 157.48 cm) nj1 19:30 Pain Scale: Adult nj1 20:48 Pain Scale: Adult pf1 MDM: 19:39 Patient medically screened. cp 20:36 Data reviewed: vital signs, nurses notes, radiologic studies, ultrasound. cp 20:36 Differential diagnosis: cyst, abscess, cellulitis. I considered the following discharge cp prescriptions or medication management in the emergency department Medications were administered in the Emergency Department. See MAR. Care significantly affected by the following chronic conditions: Diabetes. Counseling: I had a detailed discussion with the patient and/or guardian regarding: the historical points, exam findings, and any diagnostic results supporting the discharge/admit diagnosis, radiology results, the need for outpatient follow up, a general surgeon. 12/11 19:39 Order name: US Extrmty Nonvasular Limited: right side of neck; Complete Time: 20:32 cp 12/11 20:32 Interpretation: Report reviewed. cp Administered Medications: 20:32 Drug: Ibuprofen PO 800 mg Route: PO; mb9 20:48 Follow up: Response: No adverse reaction; Marked relief of symptoms pf1 Disposition Summary: 12/11/22 20:37 Discharge Ordered Location: Home cp Problem: new cp Symptoms: have improved cp Condition: Stable cp Diagnosis - Localized swelling, mass and lump, neck cp Followup: cp - With: Keven Lora MD - When: 2 - 3 days - Reason: removal of cyst Discharge Instructions: - Discharge Summary Sheet cp - Epidermoid Cyst cp - Epidermoid Cyst Drainage cp Forms: - Medication Reconciliation Form cp - Thank You Letter cp - Antibiotic Education cp - Prescription Opioid Use cp Prescriptions: - Ibuprofen 800 mg Oral Tablet - take 1 tablet by ORAL route every 8 hours As needed take with food; 30 tablet; cp Refills: 0, Product Selection Permitted - Doxycycline Monohydrate 100 mg Oral Tablet - take 1 tablet by ORAL route every 12 hours for 10 days; 20 tablet; Refills: 0, cp Product Selection Permitted Signatures: Dispatcher [employer] EDMS Parrish Vaca PA PA cp Breneman, Mary Beth RN RN mb9 Perla Portillo RN RN nj1 Kaylie Mayr RN pf1 Corrections: (The following items were deleted from the chart) 19:38 19:36 Allergies: No Known Allergies; mi1 nj1
[2022-12-11 20:54] VITALS: BP 132/108; TEMP 98.8; O2SAT 100
== END 2022-12-11 20:48 | disposition home or self-care (01) ==
LOC: ER 19:12
DX: R22.1 Localized swelling, mass and lump, neck (principal)
CPT/HCPCS: 76882; 99284

== ENCOUNTER 2023-03-26 06:44 | Emergency (ER) | payer SELFPAY ==
[2023-03-26] MEDS ORDERED: MAGNES/ALUMIN/SIMET 30ML UCUP ONE (07:27)
[2023-03-26] MEDS ORDERED: ONDANSETRON 4 MG/2 ML VIAL ONE (07:27)
[2023-03-26] MEDS ORDERED: NA CHLORIDE 0.9% 1,000 ML ONE (07:27)
[2023-03-26 07:35] LABS: Absolute Lymphocytes (CBC) 2.6 K/uL (0.7-4.9); Hematocrit 40.3 % (36.0-45.0); Lymphocytes % 24.4 % (15.3-44.8); MCV 88.3 fL (80-100); MPV 9.5 fL (7.6-11.3); Platelets 279 thou/uL (152-406); RBC Red Blood Cell Count 4.57 M/uL (3.86-4.86)
[2023-03-26 07:51] LABS: Albumin 2.9 g/dL (3.4-5.0); Bilirubin Direct 0.2 mg/dL (0-0.2); Bilirubin Indirect, Calculated 0.4 mg/dL (0.2-0.8); Bilirubin Total 0.6 mg/dL (0.2-1.0); Potassium 3.7 mEq/L (3.5-5.1); Troponin High Sensitivity 3.8 pg/mL (<58.9)
--- NOTE | 2023-03-26 08:00 | RAD REPORT ---
EXAM DESCRIPTION: Sukumar Single View03/26/2023 7:54 am CLINICAL HISTORY: Chest pain COMPARISON: August 2022 FINDINGS: The lungs appear clear of acute infiltrate. The heart is normal size IMPRESSION: No acute abnormalities displayed
--- NOTE | 2023-03-26 08:56 | EDPHYS ---
Physician Documentation [facility] Name: Anamika Norton Age: 27 yrs Sex: Female : 1995 Arrival Date: 03/26/2023 Time: 06:44 Bed 5 Private MD: ED Physician Faisal Renee HPI: 03/26 07:12 This 27 yrs old Female presents to ER via Ambulatory with complaints of ms3 Breathing Difficulty, Cough. 07:12 27-year-old female with past medical history of diabetes presents for chest pain, ms3 shortness of breath began on Saturday night after drinking. Patient states she is unable to tolerate p.o. and also has a headache. Patient denies abdominal pain, fevers, chills. Patient states her discomfort is an 8/10 located substernally, without radiation. Patient denies alleviating or inciting factors.. 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 - Social history:: Smoking status: Patient reports the use of cigarette tobacco products, smokes one-half pack cigarettes per day, Patient uses alcohol, occasionally. ROS: 07:12 Constitutional: Negative for fever, and chills. ms3 07:12 Respiratory: Negative for shortness of breath, cough, wheezing, and pleuritic chest pain, MS/Extremity: Negative for injury and deformity, Skin: Negative for injury, rash, and discoloration. 07:12 Cardiovascular: Positive for chest pain. 07:12 Abdomen/GI: Positive for nausea and vomiting. 07:12 All other systems are negative. Exam: 07:12 Constitutional: This is a well developed, well nourished patient who is awake, alert, ms3 and in no acute distress. Head/Face: Normocephalic, atraumatic. Neck: Trachea midline, no cervical lymphadenopathy. Supple, full range of motion without nuchal rigidity, or vertebral point tenderness. No Meningismus. Chest/axilla: Normal chest wall appearance and motion. Nontender with no deformity. Cardiovascular: Regular rate and rhythm with a normal S1 and S2. No gallops, murmurs, or rubs. Normal PMI, no JVD. No pulse deficits. Respiratory: Lungs have equal breath sounds bilaterally, clear to auscultation and percussion. No rales, rhonchi or wheezes noted. No increased work of breathing, no retractions or nasal flaring. Abdomen/GI: Soft, non-tender, with normal bowel sounds. No distension or tympany. No guarding or rebound. No evidence of tenderness throughout. Skin: Warm, dry with normal turgor. Normal color with no rashes, no lesions, and no evidence of cellulitis. MS/ Extremity: Pulses equal, no cyanosis. Neurovascular intact. Full, normal range of motion. 07:48 ECG was reviewed by the Attending Physician. ms3 Vital Signs: 07:09 BP 122 / 56; Pulse 66; Resp 18; Temp 98.4(O); Pulse Ox 100% on R/A; Weight 127.46 kg; ld1 Height 5 ft. 2 in. ; Pain 6/10; 08:00 BP 105 / 54; Pulse 68; Resp 18; Pulse Ox 97% on R/A; ld1 07:09 Body Mass Index 51.40 (127.46 kg, 157.48 cm) ld1 07:09 Pain Scale: Adult ld1 MDM: 07:11 Patient medically screened. ms3 07:12 Differential diagnosis: Anemia Myocardial Infarction pneumonia. ms3 11:37 Data reviewed: vital signs, nurses notes, lab test result(s), EKG, radiologic studies, ms3 and as a result, I will discharge patient. Consideration of Admission/Observation Escalation of care including admission/observation considered. Troponin negative, heart score 1. I considered the following discharge prescriptions or medication management in the emergency department Medications were administered in the Emergency Department. See MAR. Independent interpretation of the following test(s) in the Emergency Department EKG: See my EKG interpretation above X-Ray: My interpretation is Chest x-ray image reviewed by me does not reveal pneumonia. Care significantly affected by the following chronic conditions: Diabetes. Scoring Tools HEART Score: History: Slightly Suspicious (0) ECG: Normal (0) Age: < or = 45 years (0) Risk Factors: 1 or 2 Risk factors (1) Troponin: < or = 1 x Normal limit (0) Total Score = 1. Counseling: I had a detailed discussion with the patient and/or guardian regarding the historical points, exam findings, and any diagnostic results supporting the discharge/admit diagnosis, lab results, radiology results, the need for outpatient follow up, to return to the emergency department if symptoms worsen or persist or if there are any questions or concerns that arise at home. Special discussion: Based on the patient's history, exam, and Dx evaluation, there is no indication for emergent intervention or inpatient Tx. It is understood by the patient/guardian that if the Sx's persist or worsen they need to return immediately for re-evaluation. ED course: On reevaluation patient symptoms improved, patient is alert and oriented x4, no apparent distress, nontoxic-appearing, speaking full sentences, ambulatory in the emergency department. Patient to follow-up Dr. Lehman in 2 to 3 days. Patient understands agrees with plan. All questions were answered. Return precautions discussed include worsening symptoms, or any other concerns. 03/26 07:10 Order name: Basic Metabolic Panel; Complete Time: :58 ms3 03/26 07:10 Order name: CBC with Diff; Complete Time: :58 ms3 03/26 07:10 Order name: LFT's; Complete Time: :58 ms3 03/26 07:10 Order name: Troponin HS; Complete Time: :58 ms3 03/26 07:10 Order name: Lipase; Complete Time: :58 ms3 03/26 07:10 Order name: XRAY Chest (1 view); Complete Time: 08:48 ms3 03/26 07:10 Order name: EKG; Complete Time: 07:11 ms3 03/26 07:10 Order name: Cardiac monitoring; Complete Time: 07:25 ms3 03/26 07:10 Order name: EKG - Nurse/Tech; Complete Time: : ms3 03/26 07:10 Order name: IV Saline Lock; Complete Time: 07:25 ms3 03/26 07:10 Order name: Labs collected and sent; Complete Time: 07:25 ms3 03/26 07:10 Order name: O2 Per Protocol; Complete Time: 07:12 ms3 03/26 07:10 Order name: O2 Sat Monitoring; Complete Time: 07:12 ms3 EC:48 Rate is 67 beats/min. Rhythm is regular. QRS [place] is Normal. ME interval is normal. QRS ms3 interval is normal. Clinical impression: Normal ECG. Interpreted by me. Reviewed by me. Administered Medications: 07:28 Drug: Alum-Mag Hydroxide-Simeth PO Suspension (200 mg-200 mg-20 mg/5 mL) 30 ml Route: ld1 PO; 09:13 Follow up: Response: No adverse reaction ap3 07:28 Drug: Ondansetron IVP 4 mg Route: IVP; Site: right forearm; ld1 09:12 Follow up: Response: No adverse reaction ap3 07:28 Drug: NS 0.9% IV 1000 ml Route: IV; Rate: 1000 ml; Site: right forearm; ld1 09:13 Follow up: IV Status: Completed infusion ap3 Disposition Summary: 03/26/23 08:56 Discharge Ordered Location: Home ms3 Condition: Stable ms3 Diagnosis - Chest pain, unspecified ms3 - Nausea with vomiting, unspecified ms3 Followup: ms3 - With: Javier Lehman MD - When: 2 - 3 days - Reason: Recheck today's complaints Discharge Instructions: - Discharge Summary Sheet ms3 - Nonspecific Chest Pain, Adult ms3 - Nausea and Vomiting, Adult ms3 Forms: - Work release form ap3 - Medication Reconciliation Form ms3 - Thank You Letter ms3 - Antibiotic Education ms3 - Prescription Opioid Use ms3 - Patient Portal Instructions ms3 - Leadership Thank You Letter ms3 Prescriptions: - ondansetron 4 mg Oral Tablet,disintegrating - take 1 tablet by ORAL route every 8 hours; 15 tablet; Refills: 0, Product ms3 Selection Permitted Signatures: Dispatcher [employer] Faisal Nieves DO DO ms3 Peggy Renee RN RN ld1 Lesli Hankins RN ap3
--- NOTE | 2023-03-26 08:56 | ER ---
Nurse's Notes [facility] Name: Anamika Norton Age: 27 yrs Sex: Female : 1995 Arrival Date: 03/26/2023 Time: 06:44 Bed 5 Private MD: Diagnosis: Chest pain, unspecified;Nausea with vomiting, unspecified Presentation: 03/26 07:09 Chief complaint: Patient states: CP, SOB, N/V, headaches X 2-3 days. Coronavirus ld1 screen: Client presents with at least one sign or symptom that may indicate coronavirus-19. Standard/surgical mask placed on the client. Ebola Screen: No symptoms or risks identified at this time. Initial Sepsis Screen: Does the patient meet any 2 criteria? No. Patient's initial sepsis screen is negative. Does the patient have a suspected source of infection? No. Patient's initial sepsis screen is negative. Risk Assessment: Do you want to hurt yourself or someone else? Patient reports no desire to harm self or others. Onset of symptoms was March 26, 2023. 07:09 Method Of Arrival: Ambulatory ld1 07:09 Acuity: FLOR 3 ld1 Triage Assessment: 07:10 General: Appears in no apparent distress. comfortable, Behavior is calm, cooperative, ld1 appropriate for age. Pain: Complains of pain in chest Pain does not radiate. Pain currently is 6 out of 10 on a pain scale. Quality of pain is described as throbbing, Pain began 2-3 days ago. Is intermittent. EENT: No signs and/or symptoms were reported regarding the EENT system. Neuro: Level of Consciousness is awake, alert, obeys commands, Oriented to person, place, time, situation. Cardiovascular: Capillary refill < 3 seconds Patient's skin is warm and dry. Rhythm is sinus rhythm. Respiratory: Reports shortness of breath on exertion Airway is patent Respiratory effort is even, unlabored. Respiratory: Onset: The symptoms/episode began/occurred gradually, the patient has mild shortness of breath. GI: Abdomen is round non-distended. : No signs and/or symptoms were reported regarding the genitourinary system. Derm: No signs and/or symptoms reported regarding the dermatologic system. Musculoskeletal: No signs and/or symptoms reported regarding the musculoskeletal system. 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 - Social history:: Smoking status: Patient reports the use of cigarette tobacco products, smokes one-half pack cigarettes per day, Patient uses alcohol, occasionally. Screenin:12 [facility] ED Fall Risk Assessment (Adult) History of falling in the last 3 months, ld1 including since admission No falls in past 3 months (0 pts). Abuse screen: Denies threats or abuse. Denies injuries from another. Nutritional screening: No deficits noted. Tuberculosis screening: No symptoms or risk factors identified. Assessment: 07:12 Reassessment: See triage assessment. ld1 09:11 Cardiovascular: Patient's skin is warm and dry. Respiratory: Airway is patent ap3 Respiratory effort is even, unlabored, Respiratory pattern is regular, symmetrical, Breath sounds are clear. Vital Signs: 07:09 BP 122 / 56; Pulse 66; Resp 18; Temp 98.4(O); Pulse Ox 100% on R/A; Weight 127.46 kg; ld1 Height 5 ft. 2 in. ; Pain 6/10; 08:00 BP 105 / 54; Pulse 68; Resp 18; Pulse Ox 97% on R/A; ld1 07:09 Body Mass Index 51.40 (127.46 kg, 157.48 cm) ld1 07:09 Pain Scale: Adult ld1 ED Course: 06:47 Patient arrived in ED. ag3 06:58 Faisal Renee DO is Attending Physician. ms3 07:09 Peggy Renee, RN is Primary Nurse. ld1 07:10 Triage completed. ld1 07:10 Arm band placed on right wrist. ld1 07:12 Patient has correct armband on for positive identification. Placed in gown. Bed in low ld1 position. Call light in reach. Side rails up X2. 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 Pulse ox on. NIBP on. Door closed. Noise minimized. Warm blanket given. 07:12 No provider procedures requiring assistance completed. ld1 07:25 Inserted saline lock: 22 gauge in right forearm, using aseptic technique. Blood ds4 collected. Missed attempt(s): 22 gauge in right forearm. Bleeding controlled, band aid applied, catheter tip intact. 07:55 XRAY Chest (1 view) In Process Unspecified. EDMS 08:56 Javier Lehman MD is Referral Physician. ms3 09:12 Provided Education on: discharge instructions. ap3 09:12 IV discontinued, intact, bleeding controlled, No redness/swelling at site. Pressure ap3 dressing applied. Administered Medications: 07:28 Drug: Alum-Mag Hydroxide-Simeth PO Suspension (200 mg-200 mg-20 mg/5 mL) 30 ml Route: ld1 PO; 09:13 Follow up: Response: No adverse reaction ap3 07:28 Drug: Ondansetron IVP 4 mg Route: IVP; Site: right forearm; ld1 09:12 Follow up: Response: No adverse reaction ap3 07:28 Drug: NS 0.9% IV 1000 ml Route: IV; Rate: 1000 ml; Site: right forearm; ld1 09:13 Follow up: IV Status: Completed infusion ap3 Medication: 07:12 VIS not applicable for this client. ld1 Outcome: 08:56 Discharge ordered by . ms3 09:12 Discharged to home ambulatory, with family. ap3 09:12 Condition: good 09:12 Discharge instructions given to patient, Instructed on discharge instructions, follow up and referral plans. medication usage, Demonstrated understanding of instructions, follow-up care, medications, Prescriptions given X 1. 09:13 Patient left the ED. ap3 Signatures: Dispatcher [employer] EDPR Jose Ramon Leigh ds4 Lesli Hankins RN RN ap3 Brianna Dietrich ag3 Faisal Renee DO DO ms3 Peggy Renee RN RN ld1
[2023-03-26 10:11] VITALS: TEMP 98.4
[2023-03-26 10:13] VITALS: BP 105/54; O2SAT 97
--- NOTE | 2023-03-26 16:26 | EKG ---
Test Date: 2023-03-26 Test Time: 07:20:59 Urban Renewal Manager: Adeel MOJICA MEASUREMENT RESULTS: Intervals: Rate: 67 TX: 134 QRSD: 100 QT: 410 QTc: 433 [place]anha: P: 31 TX: 134 QRS: 61 T: 20 INTERPRETIVE STATEMENTS: Normal sinus rhythm with sinus arrhythmia Low voltage QRS Borderline ECG Compared to ECG 05/07/2022 08:44:04 Low QRS voltage now present Electronically Signed On 03-26-23 16:25:14 CDT by Ronnie Dow
== END 2023-03-26 09:13 | disposition home or self-care (01) ==
LOC: ER 06:44
DX: R07.89 Other chest pain (principal); R11.2 Nausea with vomiting, unspecified
CPT/HCPCS: 36415; 71045; 80048; 80076; 83690; 84484; 85025; 93005; J2405; J7030

== ENCOUNTER → 2023-08-24 | Emergency (ER) | payer SELFPAY ==
[~2023-08-24] MED LIST: KETOROLAC 30 MG/ML INJ ONE
[2023-08-24 16:36] LABS: Absolute Lymphocytes (CBC) 2.8 K/uL (0.7-4.9); Hematocrit 41.4 % (36.0-45.0); Lymphocytes % 18.8 % (15.3-44.8); Platelets 277 thou/uL (152-406)
--- NOTE | 2023-08-24 16:56 | RAD REPORT ---
EXAM DESCRIPTION: Sukumar Single View08/24/2023 4:46 pm CLINICAL HISTORY: Chest pain COMPARISON: December 2022 FINDINGS: The lungs appear clear of acute infiltrate. The heart is normal size IMPRESSION: No acute abnormalities displayed
[2023-08-24 17:07] LABS: ALT/SGPT 45 U/L (13-56); AST/SGOT 21 U/L (15-37); Albumin 3.1 g/dL (3.4-5.0); Alkaline Phosphatase 70 U/L (45-117); BUN Blood Urea Nitrogen 14 mg/dL (7-18); Bicarbonate 28 mEq/L (21-32); Bilirubin Direct 0.1 mg/dL (0-0.2); Bilirubin Indirect, Calculated 0.3 mg/dL (0.2-0.8); Bilirubin Total 0.4 mg/dL (0.2-1.0); Glomerular Filtration Rate 122 ml/min (=/>90); Glucose Level 387 mg/dL (74-106); Magnesium 1.9 mg/dL (1.6-2.4); Potassium 3.8 mEq/L (3.5-5.1); Protein, Total 7.2 g/dL (6.4-8.2); Sodium Level 133 mEq/L (136-145)
[2023-08-24 17:11] LABS: Troponin High Sensitivity < 3.0 pg/mL (<58.9)
--- NOTE | 2023-08-24 17:15 | ER ---
Nurse's Notes [facility] Name: Anamika Norton Age: 27 yrs Sex: Female : 1995 Arrival Date: 08/24/2023 Time: 15:58 Bed 5 Private MD: Diagnosis: Chest pain, unspecified Presentation: 08/24 16:08 Chief complaint: Patient states: chest pain off and on x3 days with worsening pain as6 today. Coronavirus screen: At this time, the client does not indicate any symptoms associated with coronavirus-19. Ebola Screen: No symptoms or risks identified at this time. Initial Sepsis Screen: Does the patient meet any 2 criteria? No. Patient's initial sepsis screen is negative. Does the patient have a suspected source of infection? No. Patient's initial sepsis screen is negative. Risk Assessment: Do you want to hurt yourself or someone else? Patient reports no desire to harm self or others. Onset of symptoms was August 22, 2023. 16:08 Method Of Arrival: Ambulatory as6 16:08 Acuity: FLOR 3 as6 Triage Assessment: 16:06 General: Appears in no apparent distress. Behavior is calm, cooperative. Pain: as6 Complains of pain in chest. Cardiovascular: Reports chest pain. 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 - Social history:: Smoking status: Patient reports the use of cigarette tobacco products, Reported history of juuling and/or vaping. - Family history:: not pertinent. Screenin:19 [facility] ED Fall Risk Assessment (Adult) History of falling in the last 3 months, ap3 including since admission No falls in past 3 months (0 pts). Abuse screen: Denies threats or abuse. Nutritional screening: No deficits noted. Tuberculosis screening: No symptoms or risk factors identified. Assessment: 16:10 General: Appears in no apparent distress. Behavior is calm, cooperative, appropriate ap3 for age. Pain: Complains of pain in mid-sternal area Pain does not radiate. Pain began 2-3 days ago. Neuro: Level of Consciousness is awake, alert, obeys commands, Oriented to person, place, time, situation, Appropriate for age. Cardiovascular: Patient's skin is warm and dry. Respiratory: Airway is patent Respiratory effort is even, unlabored, Respiratory pattern is regular, symmetrical. Vital Signs: 16:08 BP 151 / 94; Pulse 82; Resp 18 S; Temp 98.5(O); Pulse Ox 100% on R/A; Weight 122.47 kg as6 (R); Height 5 ft. 2 in. (R); Pain 7/10; 16:46 BP 119 / 81; Pulse 84; Pulse Ox 100% ; ap3 16:08 Body Mass Index 49.38 (122.47 kg, 157.48 cm) as6 16:08 Pain Scale: Adult as6 ED Course: 16:00 Patient arrived in ED. rg4 16:00 Chepe Baker MD is Attending Physician. rt 16:06 Arm band placed on. as6 16:09 EKG done, by ED staff, reviewed by Chepe Baker MD. ap3 16:10 Patient has correct armband on for positive identification. Placed in gown. Bed in low ap3 position. Call light in reach. Side rails up X2. Adult w/ patient. traffic monitor specialist on. Pulse ox on. NIBP on. 16:12 Triage completed. as6 16:18 Lesli Hankins, JOVANI is Primary Nurse. ap3 16:18 Initial lab(s) drawn, by me, sent to lab. Inserted saline lock: 20 gauge in right ap3 antecubital area, using aseptic technique. Blood collected. Patient maintains SpO2 saturation greater than 95% on room air. 16:48 XRAY Chest (1 view) In Process Unspecified. EDMS 17:20 No provider procedures requiring assistance completed. IV discontinued, intact, ap3 bleeding controlled, No redness/swelling at site. Pressure dressing applied. 17:21 Provided Education on: discharge instructions. ap3 Administered Medications: 16:22 Drug: Ketorolac IVP 15 mg IVP once Route: IVP; Site: right antecubital; ap3 17:20 Follow up: Response: No adverse reaction ap3 Medication: 16:19 VIS not applicable for this client. ap3 Outcome: 17:15 Discharge ordered by . rt 17:20 Discharged to home ambulatory, with family, ap3 17:20 Condition: good 17:20 Discharge instructions given to patient, Instructed on discharge instructions, follow up and referral plans. Demonstrated understanding of instructions, follow-up care, 17:21 Patient left the ED. ap3 Signatures: Dispatcher [employer] Brisa Hurst rg4 Lesli Hankins RN RN ap3 Shawn Mondragon RN RN as6 Chepe Baker MD MD rt
--- NOTE | 2023-08-24 17:15 | EDPHYS ---
Physician Documentation [facility] Name: Anamika Norton Age: 27 yrs Sex: Female : 1995 Arrival Date: 08/24/2023 Time: 15:58 Bed 5 Private MD: ED Physician Chepe Baker HPI: 08/24 16:19 This 27 yrs old Female presents to ER via Ambulatory with complaints of Chest rt Pain. 16:19 Patient presents to the ED with a sharp chest pain that has been intermittent for the rt past 2 days. She states that this started after an argument. Denies exertional component. Denies other acute complaints at this time, symptoms are mild in severity, nonradiating, no other aggravating alleviating factors.. 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 - Social history:: Smoking status: Patient reports the use of cigarette tobacco products, Reported history of juuling and/or vaping. - Family history:: not pertinent. ROS: 16:19 Cardiovascular: Positive for chest pain, Negative for edema, rt 16:20 Constitutional: Negative for fever, chills, and weight loss, Respiratory: Negative for rt shortness of breath, cough, wheezing, and pleuritic chest pain, Abdomen/GI: Negative for abdominal pain, nausea, vomiting, diarrhea, and constipation, Skin: Negative for injury, rash, and discoloration, Neuro: Negative for headache, weakness, numbness, tingling, and seizure, Psych: Negative for depression, anxiety, suicide ideation, homicidal ideation, and hallucinations, Exam: 16:20 Constitutional: This is a well developed, well nourished patient who is awake, alert, rt and in no acute distress. Head/Face: Normocephalic, atraumatic. Cardiovascular: Regular rate and rhythm with a normal S1 and S2. No gallops, murmurs, or rubs. Normal PMI, no JVD. No pulse deficits. Respiratory: Lungs have equal breath sounds bilaterally, clear to auscultation and percussion. No rales, rhonchi or wheezes noted. No increased work of breathing, no retractions or nasal flaring. Abdomen/GI: Soft, non-tender, with normal bowel sounds. No distension or tympany. No guarding or rebound. No evidence of tenderness throughout. MS/ Extremity: Pulses equal, no cyanosis. Neurovascular intact. Full, normal range of motion. Neuro: Awake and alert, GCS 15, oriented to person, place, time, and situation. Cranial nerves II-XII grossly intact. Motor strength 5/5 in all extremities. Sensory grossly intact. Cerebellar exam normal. Normal gait. Psych: Awake, alert, with orientation to person, place and time. Behavior, mood, and affect are within normal limits. 16:20 Chest/axilla: Palpation over anterior chest wall reproduces chest pain, no crepitus felt. 16:21 ECG was reviewed by the Attending Physician. rt Vital Signs: 16:08 BP 151 / 94; Pulse 82; Resp 18 S; Temp 98.5(O); Pulse Ox 100% on R/A; Weight 122.47 kg as6 (R); Height 5 ft. 2 in. (R); Pain 7/10; 16:46 BP 119 / 81; Pulse 84; Pulse Ox 100% ; ap3 16:08 Body Mass Index 49.38 (122.47 kg, 157.48 cm) as6 16:08 Pain Scale: Adult as6 MDM: 16:03 Patient medically screened. rt 17:15 Differential diagnosis: Pneumonia, pneumothorax, ACS. HEART Score: History: Slightly rt Suspicious (0), ECG: Normal (0), Age: < or = 45 years (0), Risk Factors: 1 or 2 risk factors (1), Troponin: < or = 1 x Normal Limit (0), Total Score = 1. Data reviewed: vital signs, nurses notes, lab test result(s), EKG, radiologic studies. I considered the following discharge prescriptions or medication management in the emergency department Medications were administered in the Emergency Department. See MAR. Independent interpretation of the following test(s) in the Emergency Department X-Ray: My interpretation is No pneumonia seen on interpretation of x-ray images. Test considered but Not performed: CT: Low suspicion for PE, PE RC negative, does not require CT angiogram for all pulmonary embolism. Care significantly affected by the following chronic conditions: Diabetes. Counseling: I had a detailed discussion with the patient and/or guardian regarding the historical points, exam findings, and any diagnostic results supporting the discharge/admit diagnosis, lab results, radiology results, the need for outpatient follow up, to return to the emergency department if symptoms worsen or persist or if there are any questions or concerns that arise at home. Response to treatment: the patient's symptoms have markedly improved after treatment. 08/24 16:10 Order name: Basic Metabolic Panel; Complete Time: 17:12 rt 08/24 16:10 Order name: CBC with Diff; Complete Time: 16:56 rt 08/24 16:10 Order name: LFT's; Complete Time: 17:12 rt 08/24 16:10 Order name: Magnesium; Complete Time: 17:12 rt 08/24 16:10 Order name: Troponin HS; Complete Time: 17:12 rt 08/24 16:10 Order name: XRAY Chest (1 view); Complete Time: 16:56 rt 08/24 16:10 Order name: EKG; Complete Time: 16:11 rt 08/24 16:10 Order name: Cardiac monitoring; Complete Time: 16:11 rt 08/24 16:10 Order name: EKG - Nurse/Tech; Complete Time: 16:11 rt 08/24 16:10 Order name: IV Saline Lock; Complete Time: 16:18 rt 08/24 16:10 Order name: Labs collected and sent; Complete Time: 16:18 rt 08/24 16:10 Order name: O2 Per Protocol; Complete Time: 16:11 rt 08/24 16:10 Order name: O2 Sat Monitoring; Complete Time: 16:11 rt EC:21 Rate is 82 beats/min. Rhythm is regular, Normal Sinus Rhythm with No ectopy. QRS [place] rt is Normal. GA interval is normal. QRS interval is normal. QT interval is normal. No Q waves. T waves are Normal. No ST changes noted. Interpreted by me. Administered Medications: 16:22 Drug: Ketorolac IVP 15 mg IVP once Route: IVP; Site: right antecubital; ap3 17:20 Follow up: Response: No adverse reaction ap3 Disposition Summary: 08/24/23 17:15 Discharge Ordered Notes: Location: Home rt Problem: new rt Symptoms: have improved rt Condition: Stable rt Diagnosis - Chest pain, unspecified rt Followup: rt - With: Private Physician - When: 2 - 3 days - Reason: Discharge Instructions: - Discharge Summary Sheet rt - Nonspecific Chest Pain, Adult rt Forms: - Medication Reconciliation Form rt - Thank You Letter rt - Antibiotic Education rt - Prescription Opioid Use rt - Patient Portal Instructions rt - Leadership Thank You Letter rt Signatures: Dispatcher [employer] Lesli Burk RN RN ap3 Shawn Mondragon RN RN as6 Chepe Baker MD MD rt
[2023-08-24 18:10] VITALS: BP 119/81; TEMP 98.5; O2SAT 100
== END ==
LOC: ER 15:58
DX: R07.9 Chest pain, unspecified (principal); I10 Essential (primary) hypertension; E11.9 Type 2 diabetes mellitus without complications; Z72.0 Tobacco use; Z88.0 Allergy status to penicillin
CPT/HCPCS: 36415; 71045; 80048; 80076; 83735; 84484; 85025; 93005

== ENCOUNTER 2024-10-15 11:27 | Emergency (ER) | payer OTHER ==
[2024-10-15] MEDS ORDERED: LIDOCAINE VISCOUS 2% 10ML ORAL SOLN ONE (12:09)
[2024-10-15] MEDS ORDERED: dexAMETHasone 10 MG/ML VIAL ONE (12:09)
[2024-10-15 12:24] LABS: Influenza A Ag Negative; Influenza B Ag Negative; SARS-CoV-2 Antigen Rapid Res Negative (Negative)
--- NOTE | 2024-10-15 12:38 | ER ---
Nurse's Notes [facility] Name: Anamika Norton Age: 29 yrs Sex: Female : 1995 Arrival Date: 10/15/2024 Time: 11:27 Bed 12 Private MD: Diagnosis: Viral infection, unspecified Presentation: 10/15 11:47 Chief complaint: Patient states: congestion, cough, pooja ear pain, and sore throat that aa5 began yesterday. Pt also c/o right wrist pain x 2 weeks, pt states "I did go bowling and I thought the pain was from that". Coronavirus screen: congestion, cough unrelated to allergies. Ebola Screen: Patient denies travel to an Ebola-affected area in the 21 days before illness onset. Initial Sepsis Screen: Does the patient meet any 2 criteria? No. Patient's initial sepsis screen is negative. Does the patient have a suspected source of infection? No. Patient's initial sepsis screen is negative. Risk Assessment: Do you want to hurt yourself or someone else? Patient reports no desire to harm self or others. Onset of symptoms was September 2024. 11:47 Method Of Arrival: Ambulatory aa5 11:47 Acuity: FLOR 3 aa5 Historical: - Allergies: 11:48 PENICILLINS; as a child/pt states "not anymore"; aa5 - PMHx: 11:48 Diabetes - NIDDM; aa5 - PSHx: 11:48 section; aa5 - Immunization history:: Adult Immunizations unknown. - Infectious Disease History:: Denies. - Social history:: Smoking status: Reported history of juuling and/or vaping. Screenin:[facility] ED Fall Risk Assessment (Adult) History of falling in the last 3 months, aa5 including since admission No falls in past 3 months (0 pts) Confusion or Disorientation No (0 pts) Intoxicated or Sedated No (0 pts) Impaired Gait No (0 pts) Mobility Assist Device Used No (0 pt) Altered Elimination No (0 pt) Score/Fall Risk Level 0 - 2 = Low Risk Oriented to surroundings, Maintained a safe environment, Educated pt \\T\\ family on fall prevention, incl call for assistance when getting out of bed, Assessed \\T\\ reinforced patient's understanding of fall precautions. Abuse screen: Denies threats or abuse. Nutritional screening: No deficits noted. Tuberculosis screening: No symptoms or risk factors identified. Assessment: 11:47 General: Appears comfortable, Behavior is calm, cooperative. Pain: Complains of pain in aa5 right wrist, pooja ears, and throat Pain currently is 5 out of 10 on a pain scale. Quality of pain is described as aching, Is continuous. Neuro: Level of Consciousness is awake, alert, obeys commands, Oriented to person, place, time, situation. Cardiovascular: Patient's skin is warm and dry. Respiratory: Airway is patent Respiratory effort is even, unlabored, Respiratory pattern is regular, symmetrical. GI: No signs and/or symptoms were reported involving the gastrointestinal system. : No signs and/or symptoms were reported regarding the genitourinary system. EENT: Reports nasal congestion pain in right ear, left ear and throat. Derm: Skin is pink, warm \\T\\ dry. Musculoskeletal: Range of motion: intact in all extremities, Reports pain in right wrist. 12:18 Reassessment: Patient is alert, oriented x 3, equal unlabored respirations, skin aa5 warm/dry/pink. Vital Signs: 11:47 BP 132 / 87; Pulse 77; Resp 18 S; Temp 98(TE); Pulse Ox 100% on R/A; Weight 129.73 kg aa5 (R); Height 5 ft. 2 in. (R); 11:47 Body Mass Index 52.31 (129.73 kg, 157.48 cm) aa5 ED Course: 11:30 Patient arrived in ED. al6 11:45 Ramiro Sanchez MD is Attending Physician. ec2 11:48 Triage completed. aa5 11:49 Arm band placed on Patient placed in an exam room, on a stretcher. aa5 11:49 Patient has correct armband on for positive identification. Bed in low position. Call aa5 light in reach. Side rails up X 1. 11:50 Steph Bazzi, JOVANI is Primary Nurse. aa5 12:04 Group A Streptococcus Rapid Sent. bc6 12:04 COVID-19 Ag + Flu A+B Ag Sent. bc6 12:12 Velcro wrist splint applied to right wrist. ty 12:55 No provider procedures requiring assistance completed. Patient did not have IV access iw during this emergency room visit. Administered Medications: 12:18 Drug: Dexamethasone IM 10 mg IM once Route: IM; Site: right gluteus; aa5 12:18 Drug: Viscous Lidocaine Mucous Membrane Liquid (4 %) 10 ml Mucous Membrane once {Note: aa5 administered PO for sore throat per MD VO. .} Route: Mucous Membrane; Medication: 11:51 VIS not applicable for this client. aa5 Outcome: 12:38 Discharge ordered by MD. ec2 12:55 Discharged to home ambulatory, iw 12:55 Condition: good 12:55 Discharge instructions given to patient, Instructed on discharge instructions, follow up and referral plans. medication usage, Demonstrated understanding of instructions, follow-up care, medications, Prescriptions given X 1, 12:55 Patient left the ED. iw Signatures: Radha Hernández RN RN iw Steph Bazzi RN RN aa5 Mely Joy6 Ramiro Sanchez MD MD ec2 Tyler De Luna, Tiny al6 Corrections: (The following items were deleted from the chart) 12:18 12:18 Viscous Lidocaine Mucous Membrane Liquid (4 %) 10 ml Mucous Membrane aa5 aa5
--- NOTE | 2024-10-15 12:38 | EDPHYS ---
Physician Documentation [facility] Name: Anamika Norton Age: 29 yrs Sex: Female : 1995 Arrival Date: 10/15/2024 Time: 11:27 Bed 12 Private MD: ED Physician Ramiro Sanchez HPI: 10/15 11:57 This 29 yrs old Female presents to ER via Ambulatory with complaints of Flu ec2 Symptoms, Wrist Pain. 11:57 Patient arrives today for flu symptoms and wrist pain. Patient with cough and ec2 congestion, sore throat. Also bilateral ear pain. No vomiting, no diarrhea, is complaining of subjective fevers and chills. Also reports right wrist pain onset for 2 weeks. No falls injuries or trauma.. Historical: - Allergies: 11:48 PENICILLINS; as a child/pt states "not anymore"; aa5 - PMHx: 11:48 Diabetes - NIDDM; aa5 - PSHx: 11:48 section; aa5 - Immunization history:: Adult Immunizations unknown. - Infectious Disease History:: Denies. - Social history:: Smoking status: Reported history of juuling and/or vaping. ROS: 11:59 Constitutional: as per hpi ec2 Exam: 11:59 Constitutional: GEN: NAD Head: atraumatic Eyes: EOMI Ears: External ears are normal. ec2 Bilaterally clear mouth: Posterior pharyngeal erythema without exudates noted. CV: regular rate LUNGS: no respiratory distress ABD: non-distended SKIN: no evidence of rashes MSK: no evidence of trauma, right wrist with good range of motion, no deformities, intact distal neurovascular status appreciated. Vital Signs: 11:47 BP 132 / 87; Pulse 77; Resp 18 S; Temp 98(TE); Pulse Ox 100% on R/A; Weight 129.73 kg aa5 (R); Height 5 ft. 2 in. (R); 11:47 Body Mass Index 52.31 (129.73 kg, 157.48 cm) aa5 MDM: 11:50 Medical Screening Exam initiated ec2 11:59 Data reviewed: vital signs, nurses notes. ED course: Patient arrives today for ec2 evaluation of URI signs and symptoms. Examination yields HEENT findings as above. Will obtain viral swab, strep swab, treat with steroids and viscous lidocaine. Suspect viral infection additionally considered strep pharyngitis, and addressed patient's wrist, suspect sprain given the patient's history of her work and frequent bending and flexing. I instructed her to follow-up with PCP.. 12:37 ED course: Viral swab and strep swab negative. Will discharge home with steroids for ec2 her pharyngitis. Return precautions given.. 10/15 11:57 Order name: COVID-19 Ag + Flu A+B Ag; Complete Time: 12:37 ec2 10/15 11:57 Order name: Group A Streptococcus Rapid; Complete Time: 12:37 ec2 10/15 12:24 Order name: Throat Culture EDMS 10/15 12:00 Order name: Splint - Wrist; Complete Time: 12:12 ec2 Administered Medications: 12:18 Drug: Dexamethasone IM 10 mg IM once Route: IM; Site: right gluteus; aa5 12:18 Drug: Viscous Lidocaine Mucous Membrane Liquid (4 %) 10 ml Mucous Membrane once {Note: aa5 administered PO for sore throat per MD VO. .} Route: Mucous Membrane; Disposition Summary: 10/15/24 12:38 Discharge Ordered Notes: Location: Home ec2 Condition: Stable ec2 Diagnosis - Viral infection, unspecified ec2 Followup: ec2 - With: Private Physician - When: - Reason: Re-evaluation by your physician Discharge Instructions: - Discharge Summary Sheet ec2 - Viral Illness, Adult ec2 Forms: - Work release form bc6 - Medication Reconciliation Form ec2 - Antibiotic Education ec2 - Prescription Opioid Use ec2 - Patient Portal Instructions ec2 - Leadership Thank You Letter ec2 Prescriptions: - Prednisone 20 mg Oral Tablet - take 2 tablets ORAL route once daily for 5 days; 10 tablet; Refills: 0, Product ec2 Selection Permitted Signatures: Dispatcher [employer] Steph Haney RN RN aa5 Ramiro Sanchez MD MD ec2 Corrections: (The following items were deleted from the chart) 11:58 11:58 COVID-19 Ag + Flu A+B Ag+[id number].LAB.BRZ ordered. EDMS EDMS 11:58 11:58 Group A Streptococcus Rapid Sc+I.LAB.BRZ ordered. EDMS EDMS
[2024-10-15 13:01] VITALS: BP 132/87; TEMP 98; O2SAT 100
== END 2024-10-15 12:55 | disposition home or self-care (01) ==
LOC: ER 11:27
DX: B34.9 Viral infection, unspecified (principal); Z11.52 Encounter for screening for COVID-19; M25.532 Pain in left wrist
CPT/HCPCS: 87070; 36415; 96372; 99284; 87428; J1100

== ENCOUNTER 2024-11-21 20:33 | Emergency (ER) | payer OTHER ==
[2024-11-21] MEDS ORDERED: LIDOCAINE 1% 20 ML MDV ONE (21:38)
--- NOTE | 2024-11-21 21:54 | EDPHYS ---
Physician Documentation [facility] Name: Anamika Norton Age: 29 yrs Sex: Female : 1995 Arrival Date: 11/21/2024 Time: 20:33 Bed 12 Private MD: ED Physician Chepe Baker HPI: 11/22 00:17 This 29 yrs old Female presents to ER via Ambulatory with complaints of Finger dr5 Infection. 00:20 Patient is a 29-year-old female coming in with infection to the left pinky finger this dr5 been going on for the past week. Patient reports that she has had swelling and redness. 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 - Infectious Disease History:: Denies. - Social history:: Smoking status: Patient denies any tobacco usage or history of. ROS: 11/22 00:20 Constitutional: as per hpi dr5 Exam: 00:18 Constitutional: This is a well developed, well nourished patient who is awake, alert, dr5 and in no acute distress. Head/Face: Normocephalic, atraumatic. Eyes: Pupils equal round and reactive to light, extra-ocular motions intact. Lids and lashes normal. Conjunctiva and sclera are non-icteric and not injected. Cornea within normal limits. Periorbital areas with no swelling, redness, or edema. ENT: Nares patent. No nasal discharge, no septal abnormalities noted. Tympanic membranes are normal and external auditory canals are clear. Oropharynx with no redness, swelling, or masses, exudates, or evidence of obstruction, uvula midline. Mucous membranes moist. Chest/axilla: Normal chest wall appearance and motion. Nontender with no deformity. No lesions are appreciated. Cardiovascular: Regular rate and rhythm with a normal S1 and S2. Normal PMI, no JVD. No pulse deficits. Respiratory: Lungs have equal breath sounds bilaterally, clear to auscultation. No rales, rhonchi or wheezes noted. No increased work of breathing, no retractions or nasal flaring. Abdomen/GI: Soft, non-tender, non-distended Skin: Paronychia noted around lateral left distal finger. MS/ Extremity: Pulses equal, no cyanosis. Neurovascular intact. Full, normal range of motion. Neuro: Awake and alert, GCS 15, oriented to person, place, time, and situation. Cranial nerves II-XII grossly intact. Motor strength 5/5 in all extremities. Sensory grossly intact. Cerebellar exam normal. Normal gait. Vital Signs: 11/21 20:48 BP 124 / 91; Pulse 99; Resp 15; Temp 98.1(O); Pulse Ox 99% on R/A; Weight 128.37 kg; cm10 Height 5 ft. 2 in. ; Pain 8/10; 21:21 BP 121 / 83; Pulse 88; Resp 18; Temp 98; Pulse Ox 99% on R/A; rg5 20:48 Body Mass Index 51.76 (128.37 kg, 157.48 cm) cm10 20:48 Pain Scale: Adult cm10 Procedures: 11/22 00:18 I \T\ D: Incision and drainage was performed for an abscess of the left dorsal aspect of dr5 distal phalanx of left little finger and left little fingernail Prepped with alcohol, Anesthetized with 1 ml's 1% Lidocaine. Incised with #11 blade. Drained moderate amount purulent fluid. bloody fluid. Dressing: non-Adherent dressing, the patient tolerated the procedure well. MDM: 11/21 20:36 Medical Screening Exam initiated dr5 11/22 00:18 Differential diagnosis: viral Infection, bacterial infection, URI, Paronychia. Data dr5 reviewed: vital signs, nurses notes. I considered the following discharge prescriptions or medication management in the emergency department Medications were administered in the Emergency Department. See MAR. Care significantly affected by the following chronic conditions: Diabetes. Care significantly affected by the following Social Determinants of Health: Poor access to healthcare and/or lack of insurance, Poor access to transportation, Problems related to employment. Counseling: I had a detailed discussion with the patient and/or guardian regarding the historical points, exam findings, and any diagnostic results supporting the discharge/admit diagnosis, the presence of at least one elevated blood pressure reading (>120/80) during this emergency department visit, the need for outpatient follow up, for definitive care, a family practitioner, to return to the emergency department if symptoms worsen or persist or if there are any questions or concerns that arise at home. ED course: Paronychia noted to left fifth digit. Incised with 11 blade with successful drainage of purulent discharge. Keflex prescribed. Patient is feeling much better. All questions answered.. Administered Medications: 11/21 21:45 Drug: Lidocaine Infiltration (1 %) 5 mg Infiltration once {Note: given by provider.} rg5 Route: Infiltration; 21:55 Follow up: Response: No adverse reaction rg5 Disposition: 11/22 00:38 Co-signature as Attending Physician, Chepe Baker MD I reviewed the patient's care rt provided by the Advanced Practice Provider and agree with the diagnosis and treatment plan. Disposition Summary: 11/21/24 21:53 Discharge Ordered Notes: Location: Home dr5 Condition: Stable dr5 Diagnosis - Cellulitis of left finger dr5 Followup: dr5 - With: Emergency Department - When: As needed - Reason: Worsening of condition Followup: dr5 - With: Private Physician - When: 1 - 2 days - Reason: Recheck today's complaints, Continuance of care, Re-evaluation by your physician Discharge Instructions: - Discharge Summary Sheet dr5 - Paronychia, [id number] dr5 Forms: - Medication Reconciliation Form dr5 - Antibiotic Education dr5 - Prescription Opioid Use dr5 - Patient Portal Instructions dr5 - Leadership Thank You Letter dr5 Prescriptions: - Cephalexin 500 mg Oral Capsule - take 1 capsule ORAL route every 12 hours for 10 days; 20 capsule; Refills: 0, dr5 Product Selection Permitted Signatures: Chepe Baker MD MD rt Huyen Quinones RN RN cm10 Dariel Quezada RN RN rg5 Joni Dewey FNP-C FARM MACHINERY ENGINE MECHANIC-Cdr5
--- NOTE | 2024-11-21 21:54 | ER ---
Nurse's Notes [facility] Name: Anamika Norton Age: 29 yrs Sex: Female : 1995 Arrival Date: 11/21/2024 Time: 20:33 Bed 12 Private MD: Diagnosis: Cellulitis of left finger Presentation: 11/21 20:48 Chief complaint: Patient states: swelling and redness to left pinky onset 1 week ago. cm10 Pt states that it started out to be what she thought was a hangnail. Coronavirus screen: Client denies travel out of the [place] in the last 14 days. Ebola Screen: Patient denies travel to an Ebola-affected area in the 21 days before illness onset. Initial Sepsis Screen: Does the patient meet any 2 criteria? HR > 90 bpm. Does the patient have a suspected source of infection? No. Patient's initial sepsis screen is negative. Risk Assessment: Do you want to hurt yourself or someone else? Patient reports no desire to harm self or others. Onset of symptoms is unknown. 20:48 Method Of Arrival: Ambulatory cm10 20:48 Acuity: FLOR 4 cm10 Triage Assessment: 20:50 General: Appears in no apparent distress. comfortable, Behavior is calm, cooperative. cm10 Pain: Complains of pain in left little finger Pain currently is 10 out of 10 on a pain scale. Quality of pain is described as throbbing. Neuro: No deficits noted. Level of Consciousness is awake, alert, obeys commands, Oriented to person, place, time, situation, Appropriate for age. Derm: Swelling and redness noted to left pinky. 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 - Infectious Disease History:: Denies. - Social history:: Smoking status: Patient denies any tobacco usage or history of. Assessment: 21:53 General: Appears in no apparent distress. comfortable, Behavior is calm, cooperative, rg5 appropriate for age. Pain: Complains of pain in left little fingernail Quality of pain is described as aching. Neuro: Level of Consciousness is awake, alert, obeys commands, Oriented to person, place, time, situation. Cardiovascular: No deficits noted. Respiratory: No deficits noted. Breath sounds are clear. GI: No deficits noted. : No signs and/or symptoms were reported regarding the genitourinary system. EENT: No deficits noted. Derm: Skin is intact, Skin is normal, Skin temperature is warm. Musculoskeletal: Circulation, motion, and sensation intact. Range of motion: intact in all extremities. Vital Signs: 20:48 BP 124 / 91; Pulse 99; Resp 15; Temp 98.1(O); Pulse Ox 99% on R/A; Weight 128.37 kg; cm10 Height 5 ft. 2 in. ; Pain 8/10; 21:21 BP 121 / 83; Pulse 88; Resp 18; Temp 98; Pulse Ox 99% on R/A; rg5 20:48 Body Mass Index 51.76 (128.37 kg, 157.48 cm) cm10 20:48 Pain Scale: Adult cm10 ED Course: 20:35 Patient arrived in ED. jj6 20:36 Joni Dewey, MANUEL-C [facility]. dr5 20:36 Chepe Baker MD is Attending Physician. dr5 20:49 Triage completed. cm10 20:50 Arm band placed on right wrist. Patient placed in waiting room. cm10 21:53 Assist provider with I \T\ D: of an abscess on Set up I\T\D tray. Performed by Joni rg 5 Zuleima JACKSON-Kathleen Wound packed. 4X4s, Dressing with Neosporin and 4X4s, Patient tolerated well. Patient did not have IV access during this emergency room visit. Administered Medications: 21:45 Drug: Lidocaine Infiltration (1 %) 5 mg Infiltration once {Note: given by provider.} rg5 Route: Infiltration; 21:55 Follow up: Response: No adverse reaction rg5 Medication: 21:53 VIS not applicable for this client. rg5 Outcome: 21:53 Discharge ordered by . dr5 22:05 Discharged to home ambulatory, rg5 22:05 Condition: stable 22:05 Discharge instructions given to patient, Instructed on discharge instructions, follow up and referral plans. Demonstrated understanding of instructions, follow-up care, medications, Prescriptions given X 1, 22:06 Patient left the ED. rg5 Signatures: Bonnie Matson jj6 Huyen Quinones, RN RN cm10 Dariel Quezada, JOVANI RN rg5 Joni Dewey, PLATE MOUNTER-C PLATE MOUNTER-Cdr5
[2024-11-23 23:54] VITALS: O2SAT 99
[2024-11-23 23:55] VITALS: BP 121/83; TEMP 98
== END 2024-11-21 22:06 | disposition home or self-care (01) ==
LOC: ER 20:33
PROC: 0H9GXZZ Drainage of Left Hand Skin, External Approach (ICD-10-PCS; principal; 2024-11-21)
DX: L03.012 Cellulitis of left finger (principal)
CPT/HCPCS: 99284; 10060; J2003

== ENCOUNTER 2024-11-27 05:34 | Emergency (ER) | payer OTHER ==
[2024-11-27 06:26] LABS: Influenza A Ag Negative; Influenza B Ag Negative
[2024-11-27 06:27] LABS: SARS-CoV-2 Antigen Rapid Res Positive (Negative)
--- NOTE | 2024-11-27 06:35 | EDPHYS ---
Physician Documentation [facility] Name: Anamika Norton Age: 29 yrs Sex: Female : 1995 Arrival Date: 11/27/2024 Time: 05:34 Bed DX3 Private MD: ED Physician Lizzette Vanegas HPI: 11/27 06:33 This 29 yrs old Female presents to ER via Ambulatory with complaints of Cough, sp3 Congestion, Headache. 06:33 29-year-old female with history of diabetes now presents with cough, congestion and sp3 headache for the last 24 hours. Subjective fever noted. Possible sick contacts noted. ROS otherwise negative.. Historical: - Allergies: 05:53 PENICILLINS; kl - Home Meds: 05:53 metformin 500 mg Oral tablet daily [Active]; kl - PMHx: 05:53 Diabetes - NIDDM; kl - PSHx: 05:53 section; kl - Immunization history:: Adult Immunizations up to date. - Infectious Disease History:: Denies. - Social history:: Smoking status: Patient denies any tobacco usage or history of. ROS: 06:34 Constitutional: Negative for fever, chills, and weight loss, Eyes: Negative for injury, sp3 pain, redness, and discharge, Neck: Negative for injury, pain, and swelling, Cardiovascular: Negative for chest pain, palpitations, and edema, Abdomen/GI: Negative for abdominal pain, nausea, vomiting, diarrhea, and constipation, Back: Negative for injury and pain, MS/Extremity: Negative for injury and deformity, Skin: Negative for injury, rash, and discoloration, Neuro: Negative for headache, weakness, numbness, tingling, and seizure, Psych: Negative for depression, anxiety, suicide ideation, homicidal ideation, and hallucinations, Allergy/Immunology: Negative for hives, rash, and allergies, 06:34 All other systems are negative, Exam: 06:34 Constitutional: This is a well developed, well nourished patient who is awake, alert, sp3 and in no acute distress. Head/Face: Normocephalic, atraumatic. Eyes: Pupils equal round and reactive to light, extra-ocular motions intact. Lids and lashes normal. Conjunctiva and sclera are non-icteric and not injected. Cornea within normal limits. Periorbital areas with no swelling, redness, or edema. Neck: Trachea midline, no thyromegaly or masses palpated, and no cervical lymphadenopathy. Supple, full range of motion without nuchal rigidity, or vertebral point tenderness. No Meningismus. Chest/axilla: Normal chest wall appearance and motion. Nontender with no deformity. No lesions are appreciated. Cardiovascular: Regular rate and rhythm with a normal S1 and S2. No gallops, murmurs, or rubs. Normal PMI, no JVD. No pulse deficits. Abdomen/GI: Soft, non-tender, with normal bowel sounds. No distension or tympany. No guarding or rebound. No evidence of tenderness throughout. Back: No spinal tenderness. No costovertebral tenderness. Full range of motion. Skin: Warm, dry with normal turgor. Normal color with no rashes, no lesions, and no evidence of cellulitis. MS/ Extremity: Pulses equal, no cyanosis. Neurovascular intact. Full, normal range of motion. Neuro: Awake and alert, GCS 15, oriented to person, place, time, and situation. Cranial nerves II-XII grossly intact. Motor strength 5/5 in all extremities. Sensory grossly intact. Cerebellar exam normal. Normal gait. Psych: Awake, alert, with orientation to person, place and time. Behavior, mood, and affect are within normal limits. 06:34 Respiratory: Active cough noted. Sinus congestion also noted., Vital Signs: 05:52 BP 111 / 84; Pulse 77; Resp 16; Temp 97.9(O); Pulse Ox 100% on R/A; Pain 9/10; kl 05:52 Pain Scale: Adult kl MDM: 06:06 Medical Screening Exam initiated sp3 06:34 Data reviewed: vital signs, nurses notes, lab test result(s). ED course: 29-year-old sp3 female with a respiratory faction. Official diagnosis includes viral illness, COVID-19, influenza, sinusitis. COVID-[address] patient on Paxlovid and discharge her safely home.. 11/27 05:56 Order name: COVID-19 Ag + Flu A+B Ag; Complete Time: 06:27 kl Administered Medications: No medications were administered Disposition Summary: 11/27/24 06:35 Discharge Ordered Notes: Location: Home sp3 Condition: Stable sp3 Diagnosis - COVID-19, upper respiratory infection, viral illness sp3 Followup: sp3 - With: Private Physician - When: Upon discharge from the Emergency Department - Reason: Recheck today's complaints Discharge Instructions: - Discharge Summary Sheet sp3 - COVID-19 sp3 Forms: - Medication Reconciliation Form sp3 - Antibiotic Education sp3 - Prescription Opioid Use sp3 - Patient Portal Instructions sp3 - Leadership Thank You Letter sp3 - Work release form kb3 Prescriptions: - Paxlovid 300 mg (150 mg x 2)-100 mg Oral Tablet, Dose Pack - take 1 dose pack ORAL route as directed on dose pack take TWO 150 mg tablets of sp3 nirmatrelvir with ONE 100 mg tablet of ritonavir twice daily for 5 days; 1 Each; Refills: 0, Product Selection Permitted Signatures: Dispatcher [employer] Anamika Chow, RN RN Lizzette Alcala MD MD sp3 Corrections: (The following items were deleted from the chart) 05:57 05:57 COVID-19 Ag + Flu A+B [id number] ordered. EDMS EDMS
--- NOTE | 2024-11-27 06:35 | ER ---
Nurse's Notes [facility] Name: Anamika Norton Age: 29 yrs Sex: Female : 1995 Arrival Date: 11/27/2024 Time: 05:34 Bed DX3 Private MD: Diagnosis: COVID-19, upper respiratory infection, viral illness Presentation: 11/27 05:52 Chief complaint: Patient states: cough congestion sinus headache x 2 days also reports kl right jaw pain yolis to broken tooth currently on antibiotics for finger infection. Coronavirus screen: Vaccine status: Patient reports receiving the 2nd dose of the covid vaccine. Ebola Screen: Patient negative for fever greater than or equal to 101.5 degrees Fahrenheit, and additional compatible Ebola Virus Disease symptoms. Resp Distress? No respiratory distress is noted at this time. Initial Sepsis Screen: Does the patient meet any 2 criteria? No. Patient's initial sepsis screen is negative. Does the patient have a suspected source of infection? No. Patient's initial sepsis screen is negative. Risk Assessment: Do you want to hurt yourself or someone else? Patient reports no desire to harm self or others. Onset of symptoms was November 25, 2024. 05:52 Method Of Arrival: Ambulatory 05:52 Acuity: FLOR 4 kl Triage Assessment: 05:55 General: Appears uncomfortable, Behavior is calm, cooperative. Pain: Complains of pain kl in forehead and right jaw Pain currently is 9 out of 10 on a pain scale. EENT: Nares are clear with drainage noted. Respiratory: Reports cough that is. Historical: - Allergies: 05:53 PENICILLINS; kl - Home Meds: 05:53 metformin 500 mg Oral tablet daily [Active]; kl - PMHx: 05:53 Diabetes - NIDDM; kl - PSHx: 05:53 section; kl - Immunization history:: Adult Immunizations up to date. - Infectious Disease History:: Denies. - Social history:: Smoking status: Patient denies any tobacco usage or history of. Screenin:20 [facility] ED Fall Risk Assessment (Adult) History of falling in the last 3 months, kb3 including since admission No falls in past 3 months (0 pts) Confusion or Disorientation No (0 pts) Intoxicated or Sedated No (0 pts) Impaired Gait No (0 pts) Mobility Assist Device Used No (0 pt) Altered Elimination No (0 pt) Score/Fall Risk Level 0 - 2 = Low Risk Oriented to surroundings. Abuse screen: Denies threats or abuse. Denies injuries from another. Nutritional screening: No deficits noted. Tuberculosis screening: No symptoms or risk factors identified. Assessment: 06:20 General: Appears in no apparent distress. comfortable, Behavior is calm, cooperative. kb3 06:20 Respiratory: Breath sounds are clear. EENT: Reports nasal congestion nasal discharge. kb3 Vital Signs: 05:52 BP 111 / 84; Pulse 77; Resp 16; Temp 97.9(O); Pulse Ox 100% on R/A; Pain 9/10; kl 05:52 Pain Scale: Adult ED Course: 05:39 Patient arrived in ED. gm2 05:53 Lizzette Vanegas MD is Attending Physician. sp3 05:53 Triage completed. kl 06:02 COVID-19 Ag + Flu A+B Ag Sent. kl 06:20 No provider procedures requiring assistance completed. Patient did not have IV access kb3 during this emergency room visit. 06:20 Patient has correct armband on for positive identification. Provided Education on: kb3 Discharge instructions, medications. 06:34 Lizzette Vanegas MD is Referral Physician. sp3 Administered Medications: No medications were administered Medication: 06:20 VIS not applicable for this client. kb3 Outcome: 06:20 Discharged to home ambulatory, kb3 06:20 Condition: stable 06:20 Discharge instructions given to patient, Instructed on discharge instructions, follow up and referral plans. medication usage, Demonstrated understanding of instructions, follow-up care, medications, Prescriptions given X 1, 06:35 Discharge ordered by . sp3 07:01 Patient left the ED. kb3 Signatures: Anamika Coburn, RN Lizzette Sarkar MD MD sp3 Amee Padilla RN RN kb3 Mitchell, Ginger gm2
[2024-11-27 07:46] VITALS: BP 111/84; TEMP 97.9; O2SAT 100
== END 2024-11-27 07:01 | disposition home or self-care (01) ==
LOC: ER 05:34
DX: U07.1 COVID-19 (principal); J06.9 Acute upper respiratory infection, unspecified; B34.9 Viral infection, unspecified; E11.9 Type 2 diabetes mellitus without complications
CPT/HCPCS: 36415; 87428; 99283

== ENCOUNTER 2025-05-17 11:54 | Emergency (ER) | payer OTHER ==
--- NOTE | 2025-05-17 13:27 | RAD REPORT ---
EXAMINATION: Shoulder Left 2+ Views CLINICAL INDICATION: Female, 29 years old. PAIN COMPARISON: No prior exam. FINDINGS: No acute fracture. No malalignment/dislocation. No significant focal degenerative change. Other: n/a IMPRESSION: No acute osseous abnormality.
[2025-05-17] MEDS ORDERED: IBUPROFEN 400 MG TAB ONE (14:17)
[2025-05-17] MEDS ORDERED: HYDROCODONE/APAP 5/325 MG TAB ONE (14:17)
[2025-05-17] MEDS ORDERED: CYCLOBENZAPRINE 10 MG TAB ONE (14:17)
--- NOTE | 2025-05-17 15:32 | ER ---
Nurse's Notes [facility] Name: Anamika Norton Age: 29 yrs Sex: Female : 1995 Arrival Date: 05/17/2025 Time: 11:54 Bed 10 Private MD: Diagnosis: Pain in left shoulder Presentation: 05/17 12:35 Chief complaint: Patient states: SHE WAS LYING ON LT ARM AND FELT A POP IN THE SHOULDER dd2 2 WEEKS AGO. REPORTS SHE IS UNABLE TO RAISE LT ARM ALL THE WAY UP. Coronavirus screen: At this time, the client does not indicate any symptoms associated with coronavirus-19. Ebola Screen: No symptoms or risks identified at this time. Initial Sepsis Screen: Does the patient meet any 2 criteria? No. Patient's initial sepsis screen is negative. Does the patient have a suspected source of infection? No. Patient's initial sepsis screen is negative. Risk Assessment: Do you want to hurt yourself or someone else? Patient reports no desire to harm self or others. Onset of symptoms was May 03, 2025. 12:35 Method Of Arrival: Ambulatory dd2 12:35 Acuity: FLOR 3 dd2 Triage Assessment: 12:37 General: Appears in no apparent distress. uncomfortable, Behavior is calm, cooperative, dd2 appropriate for age. Pain: Complains of pain in anterior aspect of left shoulder. Musculoskeletal: Circulation, motion, and sensation intact. Range of motion: limited in left shoulder Reports pain in anterior aspect of left shoulder. 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 - Infectious Disease History:: Denies. - Social history:: Smoking status: Reported history of juuling and/or vaping. Screenin:29 [facility] ED Fall Risk Assessment (Adult) History of falling in the last 3 months, hb including since admission No falls in past 3 months (0 pts) Confusion or Disorientation No (0 pts) Intoxicated or Sedated No (0 pts) Impaired Gait No (0 pts) Mobility Assist Device Used No (0 pt) Altered Elimination No (0 pt) Score/Fall Risk Level 0 - 2 = Low Risk Oriented to surroundings, Maintained a safe environment, Educated pt \T\ family on fall prevention, incl call for assistance when getting out of bed. Abuse screen: Denies threats or abuse. Denies injuries from another. Nutritional screening: No deficits noted. Tuberculosis screening: No symptoms or risk factors identified. Assessment: 14:29 Reassessment: Patient appears in no apparent distress at this time. Patient and/or hb family updated on plan of care and expected duration. Pain level reassessed. Patient is alert, oriented x 3, equal unlabored respirations, skin warm/dry/pink. 15:47 Reassessment: Patient appears in no apparent distress at this time. Patient and/or jb4 family updated on plan of care and expected duration. Pain level reassessed. Patient is alert, oriented x 3, equal unlabored respirations, skin warm/dry/pink. Vital Signs: 12:35 BP 124 / 94; Pulse 87; Resp 16; Temp 98.3; Pulse Ox 100% ; Weight 128.37 kg; Height 5 dd2 ft. 2 in. ; Pain 7/10; 12:35 Body Mass Index 51.76 (128.37 kg, 157.48 cm) dd2 12:35 Pain Scale: Adult dd2 ED Course: 11:57 Patient arrived in ED. al6 11:59 [facility] 11:59 Lizzette Vanegas MD is Attending Physician. dr5 12:37 Triage completed. dd2 12:37 Arm band placed on left wrist. dd2 13:21 Shoulder Left (2 View) XRAY In Process Unspecified. EDMS 14:29 No provider procedures requiring assistance completed. Patient did not have IV access hb during this emergency room visit. 15:47 Patient has correct armband on for positive identification. Bed in low position. Call jb4 light in reach. Side rails up X 1. Provided Education on: plan of care. Administered Medications: 14:29 Drug: HYDROcodone-acetaminophen PO 5 mg-325 mg 2 tabs PO once Route: PO; hb 14:29 Drug: Ibuprofen PO 800 mg PO once Route: PO; hb 14:29 Drug: Cyclobenzaprine PO 10 mg PO once Route: PO; hb Medication: 15:47 VIS not applicable for this client. jb4 Outcome: 15:31 Discharge ordered by . dr5 15:47 Discharged to home ambulatory, jb4 15:47 Condition: stable 15:47 Discharge instructions given to patient, Instructed on discharge instructions, follow up and referral plans. no drinking with medication, no driving heavy equipment, medication usage, Demonstrated understanding of instructions, follow-up care, medications, Prescriptions given X 3, 15:48 Patient left the ED. jb4 Signatures: Dispatcher [employer] EDMS Cherise Anaya RN RN Roland Walker RN RN jb4 MATTY RICH RN RN dd2 Joni Dewey, DRUM STENCILER-C DRUM STENCILER-Cdr5 Tiny Camacho
--- NOTE | 2025-05-17 15:32 | EDPHYS ---
Physician Documentation [facility] Name: Anamika Norton Age: 29 yrs Sex: Female : 1995 Arrival Date: 05/17/2025 Time: 11:54 Bed 10 Private MD: ED Physician Lizzette Vanegas HPI: 05/17 15:32 This 29 yrs old Female presents to ER via Ambulatory with complaints of dr5 Shoulder Pain. 15:32 The patient or guardian complains of pain. left shoulder. Onset: The symptoms/episode dr5 began/occurred 2 week(s) ago. 15:32 Patient is a 29-year-old female with history of diabetes coming in with left shoulder dr5 pain after she heard a pop 2 weeks ago. Patient reports that she has been taking [id number] medication with mild relief. Patient has a primary care doctor appointment this week. Patient denies decreased range of motion, numbness or tingling.. 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 - Infectious Disease History:: Denies. - Social history:: Smoking status: Reported history of juuling and/or vaping. ROS: 15:32 Constitutional: as per hpi dr5 Exam: 15:32 Constitutional: This is a well developed, well nourished patient who is awake, alert, dr5 and in no acute distress. Head/Face: Normocephalic, atraumatic. Eyes: Pupils equal round and reactive to light, extra-ocular motions intact. Lids and lashes normal. Conjunctiva and sclera are non-icteric and not injected. Cornea within normal limits. Periorbital areas with no swelling, redness, or edema. Neck: Trachea midline, no thyromegaly or masses palpated, and no cervical lymphadenopathy. Supple, full range of motion without nuchal rigidity, or vertebral point tenderness. No Meningismus. Chest/axilla: Normal chest wall appearance and motion. Nontender with no deformity. No lesions are appreciated. Cardiovascular: Regular rate and rhythm with a normal S1 and S2. Normal PMI, no JVD. No pulse deficits. Respiratory: Lungs have equal breath sounds bilaterally, clear to auscultation. No rales, rhonchi or wheezes noted. No increased work of breathing, no retractions or nasal flaring. Abdomen/GI: Soft, non-tender, non-distended Back: No spinal tenderness. No costovertebral tenderness. Full range of motion. Skin: Warm, dry with normal turgor. Normal color with no rashes, no lesions, and no evidence of cellulitis. MS/ Extremity: Pulses equal, no cyanosis. Neurovascular intact. Full, normal range of motion. Neuro: Awake and alert, GCS 15, oriented to person, place, time, and situation. Cranial nerves II-XII grossly intact. Motor strength 5/5 in all extremities. Sensory grossly intact. Cerebellar exam normal. Normal gait. Vital Signs: 12:35 BP 124 / 94; Pulse 87; Resp 16; Temp 98.3; Pulse Ox 100% ; Weight 128.37 kg; Height 5 dd2 ft. 2 in. ; Pain 7/10; 12:35 Body Mass Index 51.76 (128.37 kg, 157.48 cm) dd2 12:35 Pain Scale: Adult dd2 MDM: 11:59 Medical Screening Exam initiated dr5 15:32 Differential diagnosis: Anterior dislocation with fracture, Anterior dislocation dr5 without fracture, humeral head fracture, DJD, tendonitis. Data reviewed: vital signs, nurses notes, radiologic studies, plain films. Consideration of Admission/Observation Escalation of care including admission/observation considered. Escalation considered patient found to have dislocation or open fracture. I considered the following discharge prescriptions or medication management in the emergency department I discussed and recommended Over The Counter medications, Medications were administered in the Emergency Department. See MAR. Independent interpretation of the following test(s) in the Emergency Department X-Ray: My interpretation is Independent trepidation of x-ray does not reveal fracture. Historians other than the Patient: Spouse/Significant Other: . Care significantly affected by the following chronic conditions: Diabetes. Care significantly affected by the following Social Determinants of Health: Poor access to healthcare and/or lack of insurance, Poor access to transportation, Problems related to employment. Counseling: I had a detailed discussion with the patient and/or guardian regarding the historical points, exam findings, and any diagnostic results supporting the discharge/admit diagnosis, the presence of at least one elevated blood pressure reading (>120/80) during this emergency department visit, radiology results, the need for outpatient follow up, for definitive care, a family practitioner, a orthopedic surgeon. Medication response: Ibuprofen, cyclobenzaprine, [place]. Response to treatment: the patient's symptoms have markedly improved after treatment. Special discussion: I discussed with the patient/guardian in detail that at this point there is no indication for admission to the hospital. It is understood, however, that if the symptoms persist or worsen the patient needs to return immediately for re-evaluation. Based on the history and exam findings, there is no indication for further emergent testing or inpatient evaluation. I discussed with the patient/guardian the need to see the orthopedic surgeon for further evaluation of the symptoms. ED course: Patient reports that she is feeling much better. Will have patient follow-up with orthopedics for further management. CD printed and given to patient take with her. Will prescribe muscle relaxers and steroid Dosepak. All questions answered. Strict ER precautions given.. 05/17 12:37 Order name: Shoulder Left (2 View) XRAY; Complete Time: 13:36 dr5 Administered Medications: 14:29 Drug: HYDROcodone-acetaminophen PO 5 mg-325 mg 2 tabs PO once Route: PO; hb 14:29 Drug: Ibuprofen PO 800 mg PO once Route: PO; hb 14:29 Drug: Cyclobenzaprine PO 10 mg PO once Route: PO; hb Disposition Summary: 05/17/25 15:31 Discharge Ordered Notes: Location: Home dr5 Condition: Stable dr5 Diagnosis - Pain in left shoulder dr5 Followup: dr5 - With: Emergency Department - When: As needed - Reason: Worsening of condition Followup: dr5 - With: Private Physician - When: 1 - 2 days - Reason: Recheck today's complaints, Continuance of care, Re-evaluation by your physician Discharge Instructions: - Discharge Summary Sheet hb - Shoulder Pain dr5 Forms: - Work release form hb - Medication Reconciliation Form dr5 - Patient Portal Instructions dr5 - Leadership Thank You Letter dr5 Prescriptions: - Ibuprofen 800 mg Oral Tablet - take 1 tablet ORAL route every 12 hours As needed take with food; 20 tablet; dr5 Refills: 0, Product Selection Permitted - Cyclobenzaprine 10 mg Oral Tablet - take 1 tablet ORAL route every 8 hours As needed; 30 tablet; Refills: 0, dr5 Product Selection Permitted - Medrol (Jimmy) 4 mg Oral Tablets, Dose Pack - take 1 tablet ORAL route as directed - follow package instructions; 1 packet; dr5 Refills: 0, Product Selection Permitted Signatures: Dispatcher [employer] Cherise Harris, RN MATTY Laboy RN RN dd2 Joni Dewey, LOG HAUL CHAIN FEEDER-C LOG HAUL CHAIN FEEDER-Cdr5 Corrections: (The following items were deleted from the chart) 12:37 12:37 Shoulder Left 2 View+[email or web address] ordered. EDMS EDMS
[2025-05-17 20:11] VITALS: BP 124/94; TEMP 98.3; O2SAT 100
== END 2025-05-17 15:48 | disposition home or self-care (01) ==
LOC: ER 11:54
DX: M25.512 Pain in left shoulder (principal)
CPT/HCPCS: 99283